=== PATIENT | male | born 1955 | race Caucasian/White ===

== ENCOUNTER 2021-09-10 06:03 | Day surgery (SDC) | payer SELFPAY ==
[2021-09-10] VITALS (7 sets, daily range): BP systolic 115–157; BP diastolic 69–93
[~2021-09-10] VITALS: Ht 165.1 cm; Wt 58.9 kg
[2021-09-10] MEDS ORDERED: 0.9%NACL 1000ML 1,000 ML IV ONE (06:20)
[2021-09-10] MEDS ORDERED: PROPOFOL 1000 MG/100 ML 100 ML IV ONE (07:23)
[2021-09-10] MEDS ORDERED: EPINEPHRINE PF 1MG AMP ONE (07:23)
== END 2021-09-10 09:20 | disposition home or self-care (01) ==
LOC: ENDO 06:03 → DAH 06:03 → ENDO 09:20
PROVIDERS: ATTEND Internal Medicine Gastroenterology
DX: D49.0 Neoplasm of unspecified behavior of digestive system (principal); Z20.822 Contact with and (suspected) exposure to COVID-19; K63.5 Polyp of colon; K63.89 Other specified diseases of intestine; I10 Essential (primary) hypertension; I25.2 Old myocardial infarction; E78.5 Hyperlipidemia, unspecified; I25.10 Atherosclerotic heart disease of native coronary artery without angina pectoris; Z95.5 Presence of coronary angioplasty implant and graft; Z79.1 Long term (current) use of non-steroidal anti-inflammatories (NSAID); Z86.010 Personal history of colon polyps
CPT/HCPCS: 45381; 45385; 87635; A4215 ×2; A4216; A4221; A4222; A4223; A4606; A4620; A4657; A4663; C9803; J0171; J2704; J7030

== ENCOUNTER 2025-04-11 05:58 | Day surgery (SDC) | payer OTHER ==
[2025-04-11] VITALS (12 sets, daily range): BP systolic 103–141; BP diastolic 63–87; PULSE 61–81; RESP 14–18; TEMP 97.1–97.6
[~2025-04-11] VITALS: Ht 172.7 cm; Wt 92.1 kg
[2025-04-11] MEDS: 0.9%NACL 1000ML 1,000 ML IV ONE (06:40)
[2025-04-11] MEDS ORDERED: AMLO-257 PO (06:42)
[2025-04-11] MEDS ORDERED: ROSUVASTATIN PO (06:42)
[2025-04-11] MEDS ORDERED: ASPI-1005 PO (06:42)
== END 2025-04-11 09:57 | disposition home or self-care (01) ==
LOC: ENDO 05:58 → DAH 05:58 → ENDO 09:57
PROVIDERS: ATTEND Internal Medicine Gastroenterology
DX: R19.5 Other fecal abnormalities (principal); D12.4 Benign neoplasm of descending colon; D12.5 Benign neoplasm of sigmoid colon; K62.1 Rectal polyp; I25.2 Old myocardial infarction; E78.5 Hyperlipidemia, unspecified; I10 Essential (primary) hypertension; I25.10 Atherosclerotic heart disease of native coronary artery without angina pectoris; E66.9 Obesity, unspecified; Z95.5 Presence of coronary angioplasty implant and graft; Z79.82 Long term (current) use of aspirin; Z79.899 Other long term (current) drug therapy; Z86.0100 Personal history of colon polyps, unspecified; Z68.30 Body mass index [BMI] 30.0-30.9, adult
CPT/HCPCS: 45380; 45385; 82948 ×2; J7030; J2704 ×2; A4620; A4649; A4215; J3490

== ENCOUNTER 2025-09-08 14:00 | Inpatient (IN) | payer OTHER ==
[~2025-09-08] VITALS: Ht 177.8 cm; Wt 90.9 kg
[2025-09-08 14:38] LABS: IMMATURE GRANULOCYTE ABSOLUTE 0.03 K/uL (0-1); PLATELET COUNT (AUTO) 223 K/uL (130-400); RED BLOOD CELL COUNT(AUTO) 5.97 MIL/uL (4.50-6.20); RED CELL DISTRIBUTION WIDTH 12.5 % (11.0-15.5); WHITE BLOOD COUNT (AUTO) 8.3 K/uL (4.8-10.8)
[2025-09-08 14:39] LABS: NUCLEATED RED BLOOD CELLS 0.0 % (0.0-0.19)
[2025-09-08 14:59] LABS: INR 0.99 (0.85-1.15)
[2025-09-08 15:03] LABS: ASPARTATE AMINOTRANSFERASE 27.0 U/L (10-37); CREATININE 0.9 mg/dL (0.5-1.3); GLOMERULAR FILTR. RATE CALC 93.0 mL/min (>90); GLUCOSE,RANDOM 124.0 mg/dL (70-105); SODIUM SERUM 137.0 mmol/L (136-145); TOTAL PROTEIN, SERUM 7.9 g/dL (6.0-8.3); UREA NITROGEN, BLOOD 21.0 mg/dL (7-18)
[2025-09-08 15:17] VITALS: BP 148/77; PULSE 60; RESP 18; TEMP 98.1
--- NOTE | 2025-09-09 04:55 | EKG ---
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
--- NOTE | 2025-09-11 09:50 | NUR ---
RE:EKG REPORTED EKG RESULTS TO DR PUGH, NO NEW ORDERS.
[2025-09-12] VITALS (25 sets, daily range): BP systolic 123–155; BP diastolic 58–101; PULSE 74–106; RESP 16–20; TEMP 97.4–98.4; O2SAT 96–98
[2025-09-12] MEDS ORDERED: INVANZ 1GM+NS 50ML IVPB 50 ML IV SCH (07:00)
[2025-09-12] MEDS: INDOCYANINE GREEN 25 MG VIAL IJ ONE ×2 (07:45→13:03)
[2025-09-12] MEDS: 0.9%NACL 1000ML 1,000 ML IV ONE (07:46)
[2025-09-12] MEDS ORDERED: LIDOCAINE HCL/EPINEPHRINE 30 ML VIAL IJ ONE (08:00)
[2025-09-12] MEDS ORDERED: LIDOCAINE PF 100MG/5ML (2%) SYRINGE 5ML ONE (08:03)
[2025-09-12] MEDS ORDERED: MIDAZOLAM HCL 1 MG/ML 2ML VIAL ONE (08:04)
[2025-09-12] MEDS: SUGAMMADEX SODIUM 200 MG/2 ML VIAL IV ONE (08:35)
[2025-09-12] MEDS: LIDOCAINE HCL/EPINEPHRINE 30 ML VIAL IJ ONE (08:37)
[2025-09-12] MEDS: ERTAPENEM SODIUM 1 GM/VIAL IV ONE (08:45)
[2025-09-12] MEDS ORDERED: PROMETHAZINE HCL 25 MG/ML 1ML AMPULE IM PRN (10:00)
[2025-09-12] MEDS ORDERED: ALBUMIN (HUMAN) 5% 250 ML IV ONE (12:01)
[2025-09-12] MEDS: LACTATED RINGERS 1000ML 1,000 ML IV SCH (15:30)
--- NOTE | 2025-09-12 15:34 | OP ---
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 Gibbs is a very pleasant 70-year-old male who was found to have an unresectable colon polyp which is also recurrent. He was offered surg ical management wished to proceed. Complications, alternatives, risks and benefits of the procedure were discussed and include but not limited to infection, bleeding, injury to surrounding structures such as blood vessels organs, anastomotic leak, sepsis, need for permanent stoma, poor bowel function, recurrent disease as well as need for additional procedures. The patient and wi fe voiced complete understanding and wished to proceed with surgery. All other questions were answered to their satisfaction. DESCRIPTION OF PROCEDURE: After informed consent was obtained, the patient was taken to the operating room laid in the supine position. Once general endotracheal anesthesia was obtained, the patient was carefully placed into the lithotomy position. Next the abdomen was prepped and draped in usual sterile fashion. A time-out was performed to confirm the correct patient procedure. Next varus needle was inserted and confirmed to be intra-abdominal with the saline drop test. Pneumoperitoneum was obtained. With the main 8 mm incision followed by placement of the trocar. The camera was inserted in the abdomen was inspected. There was noted to be a well- defined tattoo seen in the mid to distal transverse colon. We then placed additional trocars in a horizontal fashion across the lower abdomen. We made a Pfannenstiel incision followed by placement of a wound protector. Patient had a significant amount of intra-abdominal fat including very thickened and fatty mesentery as well as large fatty omentum making the dissection and mobilization extremely difficult. Given the above it was decided performed and extended right colectomy has a mesentery was do fat intake and to bring the descending and transverse colon together without tension. We took the omentum off of the transverse colon from the splenic flexure to be hepatic flexure. We then mobilized the descending colon in a lateral to medial manner. We then carefully took down the splenic flexure and released the attachments from the spleen as well as inferior border of the pancreas. Once this was completely mobilized we then took the mesentery up to healthy portion of the distal transverse colon. It was then transected with a blue load stapler. With the continued mobilization of the proximal transverse colon around the hepatic flexure which was taken down. We then mobilized the right colon in a lateral to medial manner. We then tented up the ileocolic pedicle and located the duodenum which was protected throughout the entirety of the case. We then transected the ileocolic pedicle with a white load stapler. We then took the mesentery up to a healthy portion of terminal ileum. The terminal ileum was transected with a blue load stapler. We then took the remaining mesentery of the right colon and proximal transverse colon with a vessel sealer. With specimen was then extracted through the wound protector Pfannenstiel incision. Once this was done we then ensured hemostasis throughout the abdomen. With the splenic flexure imbalance and descending colon mobilized we will performed a [id number] staple anastomosis involving the terminal ileum in left colon. Systemic ICG was given intravenously to confirm adequate blood flow to be 50 terminal ileum and colon which was confirmed on firefly. We then made a venotomy and colotomy followed by placement of a stapler. A stapled anastomosis was performed and the common enterotomy was closed with a running V lock suture in two layers. We then placed Clarix bio-tissue over the common enterocolotomy to aid in healing of the anastomosis. Once this was done and omental flap was created and placed around the anastomosis. Again hemostasis was confirmed. We then placed hemostatic powder throughout the abdomen and left a drain in place. We then removed all the trocars in the 12 mm port site was closed with a Vicryl stitch. Within securely drain in place and closed the Pfannenstiel fascia with PDS sutures. We then copiously irrigated the wound with saline and Betadine solution. All skin incisions were closed with Monocryl sutures and Dermabond was placed sterile dressing. The patient tolerated the procedure well and taken to the recovery room in stable condition. I discussed the above in great detail with both the and son a completion case. They voiced complete understanding and appreciation. Specimen: Right colon and transverse colon, tattoo [place] site of unresectable polyp Complications none All counts were reported as correct x2 by nursing staff DEB HOLMAN MD Sep 12, 2025 15:34
[2025-09-12] MEDS: MIDAZOLAM HCL 1 MG/ML 2ML VIAL ONE (15:44)
[2025-09-12] MEDS: ZOSYN 3.375GM +NS 50ML IVPB SCH (16:54)
--- NOTE | 2025-09-12 17:09 | NUR ---
PATIENT ARRIVED TO UNIT Patient arrived to unit. Follows commands, doses in and out of sleep. Assessment as charted. Patient oriented to room, unit, and facility. Addendum: 09/12/25 at 1711 by RAJAT CHACON RN RN Amended: Links added.
[2025-09-12] MEDS ORDERED: GLUCAGON 1MG KIT 1 MG ML IM PRN (19:00)
[2025-09-12] MEDS ORDERED: DEXTROSE 50%-WATER 50 ML DISP.SYRIN IV PRN (19:00)
--- NOTE | 2025-09-12 20:28 | CONS ---
[facility] CONSULTATION NOTE Date of Service: Sep 12, 2025 Reason for Consultation: [ Medical Management] Requesting Physician: [Dr. Goyal ] HISTORY OF PRESENT ILLNESS: Date of service: 09/12/2025, [place] [facility] [place] This is a 70-year-old male with underlying history of hypertension, previous history of DE in 2000, GI bleed, hyperlipidemia with previous history of 3 cm tubulovillous polyp involving the proximal descending colon noted on colonoscopy from 07/2025 who is status post robotic extended right colectomy today by Dr. Goyal. Patient was seen postoperatively procedure, patient denies any significant complaint. States that abdominal pain is controlled. Patient states that he is still recovering from anesthesia. Denies any significant nausea or vomiting. Patient denies any active chest pain. Reports that he last took aspirin about five days prior to procedure. Denies any focal weakness or upper or lower extremities. Family at bedside does report that patient has a history of snoring but denies use of CPAP therapy at. Patient will be monitored closely postprocedure. We will see how patient progresses in the next 24-48 hours, we will follow this patient closely tonight. REVIEW OF SYSTEMS CONSTITUTIONAL: Denies fevers, chills, or night sweats. No unintentional weight loss reported. NEUROLOGICAL: Denies headache, amaurosis fugax, motor weakness, sensory deficit, vertigo/spinning sensation, gait abnormalities, or tremors. ENT: No hearing loss, otalgia, otorrhea, rhinitis, rhinorrhea, hoarseness, or sore throat. CARDIOVASCULAR: Denies any exertional angina, dyspnea on exertion, orthopnea, paroxysmal nocturnal dyspnea, palpitations, life-threatening arrhythmias, claudication. PULMONARY: Denies any shortness of breath, cough, phlegm/sputum, hemoptysis, pleuritic chest pain. SLEEP: Denies morning headaches, daytime somnolence or napping. Denies difficulty falling asleep, staying asleep, waking from sleep. Denies knowledge of snoring. GASTROINTESTINAL: reports having abdominal pain post surgery as expected GENITOURINARY: Denies frequency, urgency, nocturia, hematuria or incontinence (Storage/Irritative symptoms.) Low urinary stream, straining to void, urinary intermittency or hesitancy, splitting of the voiding stream, terminal dribbling. ENDOCRINOLOGIC: Denies polyuria, polydipsia, polyphagia or heat/cold intolerances. HEMATOLOGIC: Denies thrombophilia/previous clots, or coagulopathy/bleeding disorders. ONCOLOGIC: Denies personal history of malignancy. DERMATOLOGIC: Denies rashes or pruritus. PSYCHIATRIC: Denies any suicidal or homicidal ideation. Denies hallucinations. PAST MEDICAL HISTORY: Hypertension, hyperlipidemia, previous history of DE in 2000, history of GI bleeding, history of previous multiple colon polyps, obesity, possible undiagnosed obstructive sleep apnea PAST SURGICAL HISTORY: Reports having previous history of PCI with cardiac stent placement with most recent being in 2013 PAST SOCIAL HISTORY: Patient has a previous history of smoking, quit smoking about 20 years ago, quit alcohol consumption about 20 years ago as well, denies any illicit drug use FAMILY HISTORY: Denies history of GI malignancy Allergies: No known drug allergies Home medications: Amlodipine 5 mg at bedtime, aspirin 81 mg at bedtime, Crestor 10 mg at bedtime, Jardiance 10 mg at bedtime Coded Allergies: No Known Drug Allergies (Verified Allergy, 11/07/13) PHYSICAL EXAM GENERAL APPEARANCE: The patient is sleepy, but responds to verbal stimuli, able to tell me his name and responds to questions appropriately NEUROLOGICAL: Cranial nerves II-XII grossly intact. Neurological examination is nonfocal HEENT: Face is symmetric. Pupils are equal and reactive. Extraocular movements are intact. NECK: Supple. No JVD. No thyromegaly. No submental, submandibular, pre- /postauricular, occipital or supraclavicular lymphadenopathy. CHEST: Normal chest expansion. No Telemetry. LUNGS: Absence of any rales, rhonchi or any wheezing. CARDIOVASCULAR: Regular. S1 and S2 normal. No appreciable rubs, murmurs or gallops. ABDOMEN: Soft, laparoscopic abdominal incision site, appears clean, dry with no significant bleeding. JILL drain noted with serosanguineous output : Deferred. No Yeung. EXTREMITIES: Non-edematous and not cyanotic. No clubbing. Good capillary refill. SKIN: No skin breakdown. Vital Sign (Last 24 Hours) 09/12/25 09/12/25 16:30 18:15 Temp 98.1 Pulse 97 Resp 16 B/P (MAP) 134/91 Pulse Ox 97 O2 Delivery Nasal Cannula O2 Flow Rate 3.0 FiO2 28 LABS: Laboratory: Test 09/12/25 07:17 Range/Units Whole Blood Glucose 151 H 70-110 MG/DL DIAGNOSTICS / RADIOLOGY: none ASSESSMENT: Status post robotic extended right colectomy by Dr. Goyal, 09/12/2025 History of unresectable tubulovillous midtransverse colon polyp measuring about 30 mm involving the mid transverse colon, POA History of DE with previous history of PCI, POA Hypertension, POA Hyperlipidemia, POA Prior history of GI bleeding, POA Obesity, POA Rule out obstructive sleep apnea, POA PLAN: Patient will continue with close monitoring in medical-surgical floor Continue with postoperative care per Colorectal surgery Continue with pain control with IV hydromorphone for severe pain and oxycodone for moderate pain per Colorectal services Patient to continue with gentle IV fluids with LR at 50 mL/hour Continue with Zofran PRN for management of postoperative nausea We will resume patient's antihypertensives with amlodipine 5 mg daily Continue with home dose of Crestor, we will restart aspirin tomorrow morning if okay with Colorectal surgery We will keep patient on GI prophylaxis with Pepcid We will see how patient progresses closely tonight in the next 24 hours Patient to continue with IS q.4 hours postoperatively We will hold patient's home dose of Jardiance to reduce risk of ketosis especially in the postop setting All labs will be repeated in the morning Continue with DVT prophylaxis with Lovenox tomorrow, placed on IV Zosyn for 48 hours postoperatively Patient will benefit from sleep study as outpatient to r/o CYNTHIA Date of service: 09/12/2025 Plan of care was discussed with patient at bedside, Joao Singh MD Advanced Care Planning: Which of the following were discussed: Hospice care: Yes __ No _x_ Therapeutic options: Yes _x_ No __ Advance directives: Yes _x_ No __ Other discussions: Discussed with who?: Patient Voluntary nature of this service was explained to the patient? Yes _x_ No __ Amount of time spent: 20 minutes JOAO SINGH MD Sep 12, 2025 20:28
[2025-09-12] MEDS: FAMOTIDINE 20MG TAB PO SCH (21:00)
[2025-09-12] MEDS: amLODIPine 5 MG TAB PO SCH (21:00)
[2025-09-13] VITALS (8 sets, daily range): BP systolic 115–154; BP diastolic 71–85; PULSE 75–91; RESP 16–19; TEMP 98.1–98.5; O2SAT 95–96
[2025-09-13 03:30] LABS: IMMATURE GRANULOCYTE ABSOLUTE 0.04 K/uL (0-1); NUCLEATED RED BLOOD CELLS 0.0 % (0.0-0.19); PLATELET COUNT (AUTO) 221 K/uL (130-400); RED BLOOD CELL COUNT(AUTO) 5.58 MIL/uL (4.50-6.20); RED CELL DISTRIBUTION WIDTH 12.3 % (11.0-15.5); WHITE BLOOD COUNT (AUTO) 12.7 K/uL (4.8-10.8)
[2025-09-13 03:38] LABS: CREATININE 1.2 mg/dL (0.5-1.3); GLOMERULAR FILTR. RATE CALC 66.0 mL/min (>90); GLUCOSE,RANDOM 193.0 mg/dL (70-105); SODIUM SERUM 137.0 mmol/L (136-145); UREA NITROGEN, BLOOD 16.0 mg/dL (7-18)
[2025-09-13] MEDS ORDERED: 0.9%NACL 50ML IV SCH (08:00)
[2025-09-13] MEDS: ASPIRIN 81MG CHEW TAB PO SCH (08:21)
[2025-09-13] MEDS: ENOXAPARIN SODIUM 40 MG/0.4 ML SYRINGE SQ SCH (08:22)
--- NOTE | 2025-09-13 10:01 | NUR ---
DCP:HOME Pt currently lives at home with his . Pt denies any DME, home health, or provider services. Pt states that he is able to complete ADLs independently. PCP is Dr. Jefferson and uses [facility] for any RX needs. At DC pt will want to go home and family can assist with transportation.
--- NOTE | 2025-09-13 12:00 | NUR ---
SLIDING SCALE INSULIN PATIENT REFUSED INSULIN AFTER BLOOD SUGAR CHECK OF 198 PATIENT STATED HE DID NOT WANT HIS SUGAR TO DROP TOO LOW
--- NOTE | 2025-09-13 13:14 | PN ---
[facility] PROGRESS NOTE Date of Service: Sep 13, 2025 Time of Service: 13:11 SUBJECTIVE: 09/13 PATIENT REMAINS ADMITTED TO MEDICAL FLOOR, COMFORTABLY IN BED, NO ACUTE EVENTS OVERNIGHT PER DISCUSSION WITH THE RN, BLOOD PRESSURE 146/81, AFEBRILE, SATURATING NORMAL ON ROOM AIR. THE PATIENT IS ALERT ORIENTED X3, TOLERATING DIET, BUT NO BOWEL MOVEMENT TODAY. CBC SHOWS A HEMOGLOBIN OF 60.3, HEMATOCRIT 50.2, WBC 12.7, PLATELET COUNT OF 221. SODIUM 137, POTASSIUM 4.3, BUN OF 60, CREATININE 1.2, MAGNESIUM 2.1. WE WILL FOLLOW REPEAT CBC, TRANSFUSE 1 UNIT OF PRBC IF HEMOGLOBIN LESS THAN SEVEN OR EQUAL TO SEVEN. CREATININE SLIGHTLY ELEVATED TODAY AT 1.2 COMPARED TO YESTERDAY 0.9, FOLLOW REPEAT CMP. REPLACE ELECTROLYTES IV PER PROTOCOL. CONTINUE IV FLUIDS TO FOLLOW SURGICAL INPUT RECOMMENDATION, FOLLOW A.M. LABS. PLAN OF ACTION DISCUSSED WITH BOTH THE PATIENT AND THE AT BEDSIDE, ALL QUESTIONS ANSWERED, AGREED AND UNDERSTOOD THE INFORMATION PROVIDED. REVIEW OF SYSTEMS CONSTITUTIONAL: Denies fevers, chills, or night sweats. No unintentional weight loss reported. NEUROLOGICAL: Denies headache, amaurosis fugax, motor weakness, sensory deficit, vertigo/spinning sensation, gait abnormalities, or tremors. ENT: No hearing loss, otalgia, otorrhea, rhinitis, rhinorrhea, hoarseness, or sore throat. CARDIOVASCULAR: Denies any exertional angina, dyspnea on exertion, orthopnea, paroxysmal nocturnal dyspnea, palpitations, life-threatening arrhythmias, claudication. PULMONARY: Denies any shortness of breath, cough, phlegm/sputum, hemoptysis, pleuritic chest pain. SLEEP: Denies morning headaches, daytime somnolence or napping. Denies difficulty falling asleep, staying asleep, waking from sleep. Denies knowledge of snoring. GASTROINTESTINAL: reports having abdominal pain post surgery as expected GENITOURINARY: Denies frequency, urgency, nocturia, hematuria or incontinence (Storage/Irritative symptoms.) Low urinary stream, straining to void, urinary intermittency or hesitancy, splitting of the voiding stream, terminal dribbling. ENDOCRINOLOGIC: Denies polyuria, polydipsia, polyphagia or heat/cold intolerances. HEMATOLOGIC: Denies thrombophilia/previous clots, or coagulopathy/bleeding disorders. ONCOLOGIC: Denies personal history of malignancy. DERMATOLOGIC: Denies rashes or pruritus. PSYCHIATRIC: Denies any suicidal or homicidal ideation. Denies hallucinations. PHYSICAL EXAM GENERAL APPEARANCE: The patient is sleepy, but responds to verbal stimuli, able to tell me his name and responds to questions appropriately NEUROLOGICAL: Cranial nerves II-XII grossly intact. Neurological examination is nonfocal HEENT: Face is symmetric. Pupils are equal and reactive. Extraocular movements are intact. NECK: Supple. No JVD. No thyromegaly. No submental, submandibular, pre- /postauricular, occipital or supraclavicular lymphadenopathy. CHEST: Normal chest expansion. No Telemetry. LUNGS: Absence of any rales, rhonchi or any wheezing. CARDIOVASCULAR: Regular. S1 and S2 normal. No appreciable rubs, murmurs or gallops. ABDOMEN: Soft, laparoscopic abdominal incision site, appears clean, dry with no significant bleeding. JILL drain noted with serosanguineous output : Deferred. No Yeung. EXTREMITIES: Non-edematous and not cyanotic. No clubbing. Good capillary refill. SKIN: No skin breakdown. Vital Signs (last 8hr) Date Time Temp Pulse Resp B/P (MAP) Pulse Ox O2 Delivery O2 Flow Rate FiO2 09/13/25 12:23 95 Room Air* 0 21 09/13/25 11:59 98.4 77 16 146/81 95 Room Air 09/13/25 07:56 98.2 85 16 136/82 96 Nasal Cannula 2.0 LABS: Laboratory: Test 09/13/25 11:43 09/13/25 03:12 Range/Units Whole Blood Glucose 198 H 70-110 MG/DL White Blood Count 12.7 H 4.8-10.8 K/uL Red Blood Count 5.58 4.50-6.20 MIL/uL Hemoglobin 16.3 14.0-18.0 g/dL Hematocrit 50.2 42-54 % Mean Corpuscular Volume 90.0 79-99 fL Mean Corpuscular Hemoglobin 29.2 27.0-33.0 pg Mean Corpuscular Hemoglobin Concent 32.5 32.0-36.0 g/dL Red Cell Distribution Width 12.3 11.0-15.5 % Platelet Count 221 130-400 K/uL Mean Platelet Volume 10.0 7.5-10.5 fL Immature Granulocyte % (Auto) 0.3 0-1 % Neutrophils (%) (Auto) 86.9 H 40.0-77.0 % Lymphocytes (%) (Auto) 3.2 L 21.0-51.0 % Monocytes (%) (Auto) 9.4 3.0-13.0 % Eosinophils (%) (Auto) 0.0 0.0-8.0 % Basophils (%) (Auto) 0.2 0.0-5.0 % Neutrophils # (Auto) 11.0 H 1.8-7.7 K/uL Lymphocytes # (Auto) 0.4 L 1.0-4.8 K/uL Monocytes # (Auto) 1.2 H 0.1-1.0 K/uL Eosinophils # (Auto) 0.00 0.00-0.70 K/uL Basophils # (Auto) 0.02 0.00-0.20 K/uL Absolute Immature Granulocyte (auto 0.04 0-1 K/uL Nucleated Red Blood Cells 0.0 0.0-0.19 % White Cell Morphology Comment See comments Sodium Level 137 136-145 mmol/L Potassium Level 4.3 3.5-5.1 mmol/L Chloride Level 104 101-111 mmol/L Carbon Dioxide Level 24 21-32 mmol/L Blood Urea Nitrogen 16 7-18 mg/dL Creatinine 1.2 0.5-1.3 mg/dL Glomerular Filtration Rate Calc 66 >90 mL/min Random Glucose 193 H 70-105 mg/dL Total Calcium 8.5 8.5-10.1 mg/dL Magnesium Level 2.10 1.80-2.40 mg/dL Current Medications Medications (Trade) Dose Ordered Sig/Martin Route PRN Reason Start Time Stop Time Status Last Admin Dose Admin Acetaminophen (TYLenol 325MG TAB) 650 mg Q6H PO 09/12/25 15:30 10/12/25 15:29 09/13/25 10:50 650 MG Amlodipine Besylate (NorvASC 5MG TAB) 5 mg HS PO 09/12/25 21:00 10/12/25 20:59 09/12/25 21:00 5 MG Aspirin (Aspirin 81mg Chew Tab) 81 mg DAILY PO 09/13/25 09:00 10/13/25 08:59 09/13/25 08:21 81 MG Atorvastatin Calcium (LIPItor 40MG) 40 mg HS PO 09/12/25 21:00 10/12/25 20:59 09/12/25 21:00 40 MG Dextrose (D50w) 50 ml AD PRN IV HYPOGLYCEMIA PROTOCOL 09/12/25 19:00 10/12/25 18:59 Enoxaparin Sodium (Lovenox) 40 mg DAILY SQ 09/13/25 09:00 10/13/25 08:59 09/13/25 08:22 40 MG Ertapenem 50 ml @ 100 mls/hr ONCALL IV 09/12/25 07:00 09/12/25 15:43 DC Famotidine (Pepcid 20mg Tab) 20 mg BID PO 09/12/25 21:00 10/12/25 20:59 09/13/25 08:21 20 MG Fentanyl Citrate (FENTanyl CITRate PF 50 MCG/ 1 ML 2ML VIAL) 25 mcg Q5MIN PRN IVP PAIN LEVEL 7 TO 10 09/12/25 10:00 09/12/25 16:59 DC 09/12/25 15:49 25 MCG Gabapentin (NEURontin 100 mg CAP) 100 mg TID PO 09/12/25 21:00 10/12/25 20:59 09/13/25 08:21 100 MG Glucagon (Glucagon 1mg Kit) 1 mg AD PRN IM HYPOGLYCEMIA PROTOCOL 09/12/25 19:00 10/12/25 18:59 Hydralazine HCl (APRESOLine 20MG INJ) 5 mg Q6H PRN IV ADMINISTER FOR SBP > 160 09/12/25 19:00 10/12/25 18:59 Hydromorphone HCl (DiLAUDid 0.5MG INJ) 0.5 mg Q4H PRN IVP SEVERE PAIN (7-10) 09/12/25 15:30 09/17/25 15:29 09/13/25 00:20 0.5 MG Insulin Human Regular (humuLIN R 100 UNIT/ML 3ML) AD PRN SQ SLIDING SCALE COVERAGE 09/12/25 15:30 09/12/25 18:53 DC Insulin Human Regular (humuLIN R 100 UNIT/ML 3ML) INSULIN SLIDING SCAL... ACHS SQ 09/12/25 21:00 10/12/25 20:59 Ketorolac Tromethamine (toRADol) 30 mg AD PRN IV PAIN LEVEL 1 TO 3 09/12/25 10:00 09/12/25 16:59 DC Lactated Ringer's 1,000 ml @ 50 mls/hr Q20H IV 09/12/25 15:30 10/12/25 15:29 09/13/25 12:59 50 MLS/HR Metoclopramide HCl (regLAN 10MG IV) 10 mg AD PRN IVP NAUSEA/VOMITING 09/12/25 10:00 09/12/25 16:59 DC Morphine Sulfate (morPHINE 2MG SYG) 2 mg AD PRN IVP PAIN LEVEL 4 TO 6 09/12/25 10:00 09/12/25 16:59 DC Naloxone HCl (NARcan 0.4mg/1 mL) 0.1 mg AD PRN IVP RESPIRATORY SYMPTOMS 09/12/25 10:00 09/12/25 16:59 DC Ondansetron HCl (zoFRAN 4MG INJ) 4 mg AD PRN IVP NAUSEA/VOMITING 09/12/25 10:00 09/12/25 16:59 DC Ondansetron HCl (zoFRAN 4MG INJ) 4 mg Q4H PRN IVP NAUSEA 09/12/25 15:30 10/12/25 15:29 Oxycodone HCl (ROXicoDONE) 5 mg Q4H PRN PO MODERATE PAIN (4-6) 09/12/25 15:30 09/19/25 15:29 09/13/25 08:20 5 MG Piperacillin Sod/ Tazobactam Sod (Zosyn 3.375gm+NS 50ml) 3.375 gm Q8H IVPB 09/12/25 16:00 09/14/25 15:59 09/13/25 08:21 3.375 GM Promethazine HCl (Phenergan) 25 mg AD PRN IM NAUSEA/VOMITING 09/12/25 10:00 09/12/25 16:59 DC Sodium Chloride (NS 50ml) 50 ml AD IV 09/13/25 08:00 09/12/25 15:42 DC DIAGNOSTICS / RADIOLOGY: [ ] ASSESSMENT: Status post robotic extended right colectomy by Dr. Goyal, 09/12/2025 History of unresectable tubulovillous midtransverse colon polyp measuring about 30 mm involving the mid transverse colon, POA History of AK with previous history of PCI, POA Hypertension, POA Hyperlipidemia, POA Prior history of GI bleeding, POA Obesity, POA Rule out obstructive sleep apnea, POA PLAN: PATIENT REMAINS ADMITTED TO MEDICAL FLOOR, COMFORTABLY IN BED, NO ACUTE EVENTS OVERNIGHT PER DISCUSSION WITH THE RN, BLOOD PRESSURE 146/81, AFEBRILE, SATURATING NORMAL ON ROOM AIR. THE PATIENT IS ALERT ORIENTED X3, TOLERATING DIET, BUT NO BOWEL MOVEMENT TODAY. CBC SHOWS A HEMOGLOBIN OF 60.3, HEMATOCRIT 50.2, WBC 12.7, PLATELET COUNT OF 221. SODIUM 137, POTASSIUM 4.3, BUN OF 60, CREATININE 1.2, MAGNESIUM 2.1. WE WILL FOLLOW REPEAT CBC, TRANSFUSE 1 UNIT OF PRBC IF HEMOGLOBIN LESS THAN SEVEN OR EQUAL TO SEVEN. CREATININE SLIGHTLY ELEVATED TODAY AT 1.2 COMPARED TO YESTERDAY 0.9, FOLLOW REPEAT CMP. REPLACE ELECTROLYTES IV PER PROTOCOL. CONTINUE IV FLUIDS TO FOLLOW SURGICAL INPUT RECOMMENDATION, FOLLOW A.M. LABS. PLAN OF ACTION DISCUSSED WITH BOTH THE PATIENT AND THE AT BEDSIDE, ALL QUESTIONS ANSWERED, AGREED AND UNDERSTOOD THE INFORMATION PROVIDED. NEURO: MINIMIZE CENTRAL ACTING MEDICATIONS POSSIBLE. FALL PRECAUTIONS. WELL LIGHTED ROOM THROUGH THE DAY AND MINIMIZE INTERRUPTIONS THROUGH THE NIGHT TO PREVENT ACUTE DELIRIUM. PULMONARY: SUPPLEMENTAL 02 NEEDED BIPAP NECESSARY, FOR RESPIRATORY DISTRESS TITRATE FIO2 TO KEEP SPO2 > OR = 90% DUONEBS AND CPT NEEDED IS HOURLY WHILE AWAKE FOR PULMONARY HYGIENE PRN OUT OF BED TO CHAIR TOLERATED MAINTAIN ASPIRATION PRECAUTIONS AT ALL TIMES CARDIOVASCULAR: FOLLOW HEMODYNAMICS. VITAL SIGNS PER FACILITY PROTOCOL GI & NUTRITION: CONTINUE NUTRITIONAL SUPPORT ASPIRATIONS PRECAUTIONS PROKINETIC AGENTS AND LAXATIVES NEEDED KIDNEYS & ELECTROLYTES: STRICT MONITORING OF INTAKE AND OUTPUT DAILY WEIGHTS AVOID NEPHROTOXIC AGENTS MONITOR ELECTROLYTES AND REPLACE NEEDED GOAL URINE OUTPUT OF 30ML/HR OR 0.5ML/KG/HR MEDICATIONS TO BE DOSED ACCORDING TO RENAL FUNCTION. AVOID CONTRAST IF POSSIBLE ENDOCRINE: MAINTAIN BLOOD GLUCOSE BETWEEN 100-180 AT ALL TIMES. INSULIN SLIDING SCALE FOR BLOOD GLUCOSE MANAGEMENT HYPOGLYCEMIA AND HYPERGLYCEMIA PROTOCOL IN PLACE INFECTIOUS DISEASE: TREND TEMPERATURE, WBC AND PROCALCITONIN LEVEL FOLLOW CULTURES, DEESCALATE ANTIBIOTICS SOON POSSIBLE. PANCULTURE IF NEW ONSET FEVER HEMATOLOGY & COAGULATION: MONITOR H&H. KEEP HGB > 7 TRANSFUSE 1 UNIT OF PRBC FOR HGB < 7 TRANSFUSE 1 PACK OF PLATELETS OF PLATELETS < 20, 000 WATCH FOR ANY SIGNS AND SYMPTOMS OF BLEEDING SKIN: PRESSURE ULCER PREVENTION PER FACILITY PROTOCOL SPECIALTY MATTRESS NEEDED ORTHO/REHAB CONTINUE PT/OT PRN: MEDICATIONS TYLENOL 650 MG PO EVERY 4 HRS FOR FEVER ZOFRAN 4 MG IV EVERY 6 HRS FOR N/V HYDRALAZINE 5 MG IV EVERY 4 HRS SYSTOLIC PRESSURE > 160 BOWEL REGIMENT: LACTULOSE 20 GM PO BID PRN CONSTIPATION SUPPORTIVE MEASURES: CONTINUE GI AND DVT PROPHYLAXIS DISPOSITION: PENDING IMPROVEMENT IN CLINICAL CONDITION ALL QUESTIONS ANSWERED TIME SPENT: > 35 MIN GILBERT KIM MD Sep 13, 2025 13:14
--- NOTE | 2025-09-13 14:22 | NUR ---
KARINA CATH REMOVAL S/W WITH EDIL VILLALOBOS WITH [facility]. OK TO D/C KARINA.
[2025-09-13 14:47] LABS: NUCLEATED RED BLOOD CELLS 0.0 % (0.0-0.19); PLATELET COUNT (AUTO) 218.0 K/uL (130-400); RED BLOOD CELL COUNT(AUTO) 5.54 MIL/uL (4.50-6.20); RED CELL DISTRIBUTION WIDTH 12.3 % (11.0-15.5); WHITE BLOOD COUNT (AUTO) 15.2 K/uL (4.8-10.8)
[2025-09-13 15:02] LABS: CREATININE 1.2 mg/dL (0.5-1.3); GLOMERULAR FILTR. RATE CALC 66.0 mL/min (>90); GLUCOSE,RANDOM 186.0 mg/dL (70-105); SODIUM SERUM 136.0 mmol/L (136-145); UREA NITROGEN, BLOOD 18.0 mg/dL (7-18)
[2025-09-13 15:06] LABS: ASPARTATE AMINOTRANSFERASE 25.0 U/L (10-37); TOTAL PROTEIN, SERUM 7.0 g/dL (6.0-8.3)
--- NOTE | 2025-09-13 15:32 | NUR ---
COLLINS REMOVAL 16 FR COLLINS CATHETER REMOVED PER ORDER. 125ML OF CLEAR YELLOW URINE EMPTIED FROM COLLINS. BALLOON DEFLATED WITH 9 ML OF H20 NOTED IN SYRINGE. REMOVED CATHETER USING CLEAN TECHNIQUE. CATHETER TIP CLEAN AND INTACT. PATIENT TOLERATED WELL NO SIGNS OF PAIN OR DISCOMFORT NOTED. PATIENT ADVISED TO NOTIFY NURSE OF FIRST VOID POST REMOVAL.
--- NOTE | 2025-09-13 16:41 | NUR ---
PT Endorsed Patient ambulates safely on his own. Will remove from PT roster and endorse to nursing
--- NOTE | 2025-09-13 16:44 | NUR ---
INSULIN REFUSAL PATIENT REFUSED SLIDING SCALE INSULIN LET PATIENT KNOW HIS SUGAR CHECK CAME BACK AT 179 PATIENT STILL REFUSED AND SAID HE DID NOT WANT HIS SUGAR TO DROP LOWER
--- NOTE | 2025-09-13 18:30 | NUR ---
[facility] CHANGED DRESSING AROUND JILL DRAIN INSERTION CLEANED WITH SALINE AROUND SITE AND APPLIED CLEAN AND DRY 4X4 DRESSINGS AROUND DRAIN AND PUT TAGADERM AROUND TO SECURE LEFT CLEAN AND DRY
[2025-09-13] MEDS: SIMETHICONE 80 MG TAB.CHEW PO SCH (18:37)
--- NOTE | 2025-09-13 18:58 | NUR ---
PATIENT STATUS PATIENT WAS FEELING NAUSEOUS AND SAT UP IN BED PATIENT VOMITED INTO EMESIS BAG ONLY 1 EPISODE POST MED ADMINISTRATION OF SIMETHICONE TABLETS Addendum: 09/13/25 at 1906 by BRII SAMUEL LVN LVN PATIENT VITALS AFTER FOLLOWS: BP126/94, 100 HEART RATE, O2 91% SECOND SET: BP 139/98, 96 HEART RATE, O2 93 PATIENT FELT BETTER AFTER, LEFT PATIENT COMFORTABLE IN BED IN NO DISTRESS
--- NOTE | 2025-09-13 21:55 | PN ---
[facility] PROGRESS NOTE Date of Visit: Sep 13, 2025 Time of Visit: 21:54 Events / Notes: No acute events overnight. s/p right colectomy. Abdomen distended but soft. He had a BM. No nausea or vomiting and he is tolerating diet. Incisions clean, dry and intact. Review of Systems: CONSTITUTIONAL: No malaise or change in sensation of wellbeing. ENMT: No rhinorrhea, otorrhea, sinus pain, ear ache. CARDIOVASCULAR: No angina, palpitations, orthopnea or paroxysmal dyspnea. RESPIRATORY: No SOB. GASTROINTESTINAL: No abdominal pain, nausea, vomiting, diarrhea, hematemesis, melena or change in the patient's habitual bowel movements consistency/number. GENITOURINARY: No dysuria, hematuria or change in bladder continence. MUSCULOSKELETAL: No new muscle pain or decrease in muscular strength. No new joint swelling, redness or tenderness. SKIN: No new rash. Physical Exam: GEN: Awake, alert, oriented in person, time and place, and in no acute distress. HEENT: No sinus tenderness. Tympanic membranes were not examined. No rhinorrhea. Oral pharyngeal mucosa is pink, moist and within normal limits. Neck is supple with no cervical lymphadenopathy, thyromegaly or JVD. CHEST: Inspection, palpation and percussion of the chest were unremarkable. Lung auscultation revealed normal breath sounds bilaterally. CARDIAC: PMI is within normal limits. Heart sounds are regular. Normal S1, S2. No gallop or murmur. ABD: Soft, non-tender and not distended. No peritoneal signs on palpation. No organomegaly. Normal bowel sounds. EXT: No cyanosis or clubbing. No edema. SKIN: Intact. No rashes. JOINTS: No evidence of synovitis or acute arthritis. NEURO: Alert and oriented to name, place and person. Cranial nerve examination is unremarkable. No focal motor deficits. Normal speech. Gait is normal. Strength is normal. Vital Signs (last 8hr) Date Time Temp Pulse Resp B/P (MAP) Pulse Ox O2 Delivery O2 Flow Rate FiO2 09/13/25 20:16 98.4 83 19 154/85 96 Room Air 21 09/13/25 16:33 98.1 75 18 145/84 95 Room Air Laboratory: [ ] Laboratory: Test 09/13/25 19:21 09/13/25 14:35 09/13/25 03:12 Range/Units Whole Blood Glucose 166 H 70-110 MG/DL White Blood Count 15.2 H 4.8-10.8 K/uL Red Blood Count 5.54 4.50-6.20 MIL/uL Hemoglobin 16.1 14.0-18.0 g/dL Hematocrit 48.9 42-54 % Mean Corpuscular Volume 88.3 79-99 fL Mean Corpuscular Hemoglobin 29.1 27.0-33.0 pg Mean Corpuscular Hemoglobin Concent 32.9 32.0-36.0 g/dL Red Cell Distribution Width 12.3 11.0-15.5 % Platelet Count 218 130-400 K/uL Mean Platelet Volume 9.7 7.5-10.5 fL Nucleated Red Blood Cells 0.0 0.0-0.19 % Sodium Level 136 136-145 mmol/L Potassium Level 4.0 3.5-5.1 mmol/L Chloride Level 101 101-111 mmol/L Carbon Dioxide Level 24 21-32 mmol/L Blood Urea Nitrogen 18 7-18 mg/dL Creatinine 1.2 0.5-1.3 mg/dL Glomerular Filtration Rate Calc 66 >90 mL/min Random Glucose 186 H 70-105 mg/dL Total Calcium 8.7 8.5-10.1 mg/dL Magnesium Level 2.30 1.80-2.40 mg/dL Total Bilirubin 0.7 0.2-1.0 mg/dL Aspartate Amino Transf (AST/SGOT) 25 10-37 U/L Alanine Aminotransferase (ALT/SGPT) 43 12-78 U/L Alkaline Phosphatase 74 50-136 U/L Total Protein 7.0 6.0-8.3 g/dL Albumin 3.6 3.5-5.0 g/dL Immature Granulocyte % (Auto) 0.3 0-1 % Neutrophils (%) (Auto) 86.9 H 40.0-77.0 % Lymphocytes (%) (Auto) 3.2 L 21.0-51.0 % Monocytes (%) (Auto) 9.4 3.0-13.0 % Eosinophils (%) (Auto) 0.0 0.0-8.0 % Basophils (%) (Auto) 0.2 0.0-5.0 % Neutrophils # (Auto) 11.0 H 1.8-7.7 K/uL Lymphocytes # (Auto) 0.4 L 1.0-4.8 K/uL Monocytes # (Auto) 1.2 H 0.1-1.0 K/uL Eosinophils # (Auto) 0.00 0.00-0.70 K/uL Basophils # (Auto) 0.02 0.00-0.20 K/uL Absolute Immature Granulocyte (auto 0.04 0-1 K/uL White Cell Morphology Comment See comments Current Medications Medications (Trade) Dose Ordered Sig/Martin Route PRN Reason Start Time Stop Time Status Last Admin Dose Admin Acetaminophen (TYLenol 325MG TAB) 650 mg Q6H PO 09/12/25 15:30 10/12/25 15:29 09/13/25 20:56 650 MG Amlodipine Besylate (NorvASC 5MG TAB) 5 mg HS PO 09/12/25 21:00 10/12/25 20:59 09/13/25 20:47 5 MG Aspirin (Aspirin 81mg Chew Tab) 81 mg DAILY PO 09/13/25 09:00 10/13/25 08:59 09/13/25 08:21 81 MG Atorvastatin Calcium (LIPItor 40MG) 40 mg HS PO 09/12/25 21:00 10/12/25 20:59 09/13/25 20:47 40 MG Dextrose (D50w) 50 ml AD PRN IV HYPOGLYCEMIA PROTOCOL 09/12/25 19:00 10/12/25 18:59 Enoxaparin Sodium (Lovenox) 40 mg DAILY SQ 09/13/25 09:00 10/13/25 08:59 09/13/25 08:22 40 MG Ertapenem 50 ml @ 100 mls/hr ONCALL IV 09/12/25 07:00 09/12/25 15:43 DC Famotidine (Pepcid 20mg Tab) 20 mg BID PO 09/12/25 21:00 10/12/25 20:59 09/13/25 20:47 20 MG Fentanyl Citrate (FENTanyl CITRate PF 50 MCG/ 1 ML 2ML VIAL) 25 mcg Q5MIN PRN IVP PAIN LEVEL 7 TO 10 09/12/25 10:00 09/12/25 16:59 DC 09/12/25 15:49 25 MCG Gabapentin (NEURontin 100 mg CAP) 100 mg TID PO 09/12/25 21:00 10/12/25 20:59 09/13/25 20:47 100 MG Glucagon (Glucagon 1mg Kit) 1 mg AD PRN IM HYPOGLYCEMIA PROTOCOL 09/12/25 19:00 10/12/25 18:59 Hydralazine HCl (APRESOLine 20MG INJ) 5 mg Q6H PRN IV ADMINISTER FOR SBP > 160 09/12/25 19:00 10/12/25 18:59 Hydromorphone HCl (DiLAUDid 0.5MG INJ) 0.5 mg Q4H PRN IVP SEVERE PAIN (7-10) 09/12/25 15:30 09/17/25 15:29 09/13/25 00:20 0.5 MG Insulin Human Regular (humuLIN R 100 UNIT/ML 3ML) AD PRN SQ SLIDING SCALE COVERAGE 09/12/25 15:30 09/12/25 18:53 DC Insulin Human Regular (humuLIN R 100 UNIT/ML 3ML) INSULIN SLIDING SCAL... ACHS SQ 09/12/25 21:00 10/12/25 20:59 Ketorolac Tromethamine (toRADol) 30 mg AD PRN IV PAIN LEVEL 1 TO 3 09/12/25 10:00 09/12/25 16:59 DC Lactated Ringer's 1,000 ml @ 50 mls/hr Q20H IV 09/12/25 15:30 10/12/25 15:29 09/13/25 12:59 50 MLS/HR Metoclopramide HCl (regLAN 10MG IV) 10 mg AD PRN IVP NAUSEA/VOMITING 09/12/25 10:00 09/12/25 16:59 DC Morphine Sulfate (morPHINE 2MG SYG) 2 mg AD PRN IVP PAIN LEVEL 4 TO 6 09/12/25 10:00 09/12/25 16:59 DC Naloxone HCl (NARcan 0.4mg/1 mL) 0.1 mg AD PRN IVP RESPIRATORY SYMPTOMS 09/12/25 10:00 09/12/25 16:59 DC Ondansetron HCl (zoFRAN 4MG INJ) 4 mg AD PRN IVP NAUSEA/VOMITING 09/12/25 10:00 09/12/25 16:59 DC Ondansetron HCl (zoFRAN 4MG INJ) 4 mg Q4H PRN IVP NAUSEA 09/12/25 15:30 10/12/25 15:29 Oxycodone HCl (ROXicoDONE) 5 mg Q4H PRN PO MODERATE PAIN (4-6) 09/12/25 15:30 09/19/25 15:29 09/13/25 20:55 5 MG Piperacillin Sod/ Tazobactam Sod (Zosyn 3.375gm+NS 50ml) 3.375 gm Q8H IVPB 09/12/25 16:00 09/14/25 15:59 09/13/25 16:03 3.375 GM Promethazine HCl (Phenergan) 25 mg AD PRN IM NAUSEA/VOMITING 09/12/25 10:00 09/12/25 16:59 DC Simethicone (Mylicon) 160 mg Q6H6 PO 09/13/25 18:00 10/13/25 17:59 09/13/25 18:37 160 MG Sodium Chloride (NS 50ml) 50 ml AD IV 09/13/25 08:00 09/12/25 15:42 DC Diagnostics / Radiology: [COPY/PASTE HERE IF NO REPORTS PLEASE DELETE SECTION] Assessment: [ ] Plan: Regular diet Simethicone scheduled KUB in am Encourage ambulation If tolerating diet and pain controlled then cleared for discharge in AM EDUARDO DELONG [employer] Sep 13, 2025 21:55
[2025-09-14 03:58] LABS: IMMATURE GRANULOCYTE ABSOLUTE 0.06 K/uL (0-1); NUCLEATED RED BLOOD CELLS 0.0 % (0.0-0.19); PLATELET COUNT (AUTO) 246 K/uL (130-400); RED BLOOD CELL COUNT(AUTO) 5.38 MIL/uL (4.50-6.20); RED CELL DISTRIBUTION WIDTH 12.6 % (11.0-15.5); WHITE BLOOD COUNT (AUTO) 14.8 K/uL (4.8-10.8)
[2025-09-14 04:19] LABS: ASPARTATE AMINOTRANSFERASE 22.0 U/L (10-37); CREATININE 1.1 mg/dL (0.5-1.3); GLOMERULAR FILTR. RATE CALC 73.0 mL/min (>90); GLUCOSE,RANDOM 183.0 mg/dL (70-105); SODIUM SERUM 137.0 mmol/L (136-145); TOTAL PROTEIN, SERUM 6.7 g/dL (6.0-8.3); UREA NITROGEN, BLOOD 19.0 mg/dL (7-18)
[2025-09-14 04:25] VITALS: BP 119/68; PULSE 76; RESP 18; TEMP 98.2
[2025-09-14 07:58] VITALS: BP 134/69; PULSE 80; RESP 16; TEMP 98.3
--- NOTE | 2025-09-14 09:44 | HMCIMG ---
EXAM: CR Abdomen, 2 Views. CLINICAL HISTORY: Abdominal distention COMPARISON: None provided. FINDINGS: BOWEL: Abnormally dilated loops of small bowel are seen in the abdomen, measuring up to 3.5cm in caliber, with a few of them showing air-fluid levels, concerning for Small bowel obstruction. PERITONEUM/SOFT TISSUES:No free air evident. No pathologic appearing calcification. BONES: No aggressive appearing osseous lesion seen. IMPRESSION: Abnormally dilated loops of small bowel in the abdomen with air-fluid levels, concerning for Small bowel obstruction. Contrast CT Abdomen and pelvis is recommended for further evaluation if clinically warranted. /[place]
--- NOTE | 2025-09-14 10:04 | NUR ---
CRITICAL RESULT ABNORMAL ABDOMINAL U/S CONCERNING FOR SMALL BOWEL OBSTRUCTION. DR. KIM AWARE CT ABD/PELVIS W/O CONTRAST ORDERED. KEEP PATIENT NPO NOTIFY GI PHYSICIAN.
[2025-09-14 11:00] VITALS: O2SAT 92
--- NOTE | 2025-09-14 11:51 | HMCIMG ---
EXAM: CT Abdomen and Pelvis Without IV contrast CLINICAL HISTORY: SMALL BOWEL OBSTRUCTION TECHNIQUE: Axial computed tomography images of the abdomen and pelvis without intravenous contrast. CONTRAST: No IV contrast. COMPARISON: None provided. FINDINGS: LUNG BASES: A few fibrotic streaks with adjacent pleural thickening in the bilateral lung bases. Subsegmental atelectasis in the bilateral lower lobes. LIVER: Steatosis with a small cyst measuring 1.6 x 1.4 cm in segment VIII GALLBLADDER AND BILE DUCTS: The gallbladder appears within normal limits. No radioopaque gallstones are seen. No biliary ductal dilatation is evident. PANCREAS: Unremarkable. SPLEEN: Unremarkable. ADRENAL GLANDS: Unremarkable. KIDNEYS, URETERS, AND BLADDER: A few tiny cysts in the right kidney. The kidneys appear otherwise within normal limits. There is no hydronephrosis or hydroureter. No urinary calculi are seen. STOMACH AND BOWEL: Post extended right hemicolectomy status with surgical anastomosis of the ileal loops to the skin. Scattered diverticulosis of the distal descending and sigmoid colon. Postsurgical changes in the anterior abdominal wall with air locules in the anterior abdominal wall in the bilateral scrotum. Diffuse subcutaneous fat stranding and a drainage catheter are identified in the left paracolic gutter. No obvious collection is identified. Mild fluid-filled distended jejunal and ileal loops, measuring up to 3.6 cm, consistent with ileus. No inflammatory bowel wall thickening. PERITONEUM: No free fluid. No free air. LYMPH NODES: No lymphadenopathy is evident. REPRODUCTIVE: Enlarged prostate VASCULATURE: No evidence of abdominal aortic aneurysm. Atherosclerotic calcification in the abdominal aorta and iliac arteries BONES: No aggressive appearing osseous lesion. No acute osseous pathology evident. Moderate degenerative changes in the sacroiliac, superolateral hip joint, and multilevel degenerative facet at the lumbar spine. IMPRESSION: Post extended right hemicolectomy status with surgical anastomosis of the ileal loops to the skin. Scattered diverticulosis of the distal descending and sigmoid colon. Postsurgical changes in the anterior abdominal wall with air locules in the anterior abdominal wall in the bilateral scrotum. Diffuse subcutaneous fat stranding and a drainage catheter are identified in the left paracolic gutter. No obvious collection is identified. Mild fluid-filled distended jejunal and ileal loops, measuring up to 3.6 cm, consistent with ileus. Enlarged prostate. Diffuse fatty infiltration of the liver. A 1.6 cm hypodense lesion in segment 8 ofthe liver. Diffuse coronary artery calcifications. /[facility]clean
[2025-09-14 12:00] VITALS: BP 143/96; PULSE 107; RESP 18; TEMP 98.7
--- NOTE | 2025-09-14 12:19 | PN ---
[facility] PROGRESS NOTE Date of Service: Sep 14, 2025 Time of Service: 12:16 SUBJECTIVE: 09/13 PATIENT REMAINS ADMITTED TO MEDICAL FLOOR, COMFORTABLY IN BED, NO ACUTE EVENTS OVERNIGHT PER DISCUSSION WITH THE RN, BLOOD PRESSURE 146/81, AFEBRILE, SATURATING NORMAL ON ROOM AIR. THE PATIENT IS ALERT ORIENTED X3, TOLERATING DIET, BUT NO BOWEL MOVEMENT TODAY. CBC SHOWS A HEMOGLOBIN OF 60.3, HEMATOCRIT 50.2, WBC 12.7, PLATELET COUNT OF 221. SODIUM 137, POTASSIUM 4.3, BUN OF 60, CREATININE 1.2, MAGNESIUM 2.1. WE WILL FOLLOW REPEAT CBC, TRANSFUSE 1 UNIT OF PRBC IF HEMOGLOBIN LESS THAN SEVEN OR EQUAL TO SEVEN. CREATININE SLIGHTLY ELEVATED TODAY AT 1.2 COMPARED TO YESTERDAY 0.9, FOLLOW REPEAT CMP. REPLACE ELECTROLYTES IV PER PROTOCOL. CONTINUE IV FLUIDS TO FOLLOW SURGICAL INPUT RECOMMENDATION, FOLLOW A.M. LABS. PLAN OF ACTION DISCUSSED WITH BOTH THE PATIENT AND THE AT BEDSIDE, ALL QUESTIONS ANSWERED, AGREED AND UNDERSTOOD THE INFORMATION PROVIDED. 09/14 patient remains admitted to medical floor, comfortably in bed, awake, alert oriented x3, following commands. Patient has a bowel movement yesterday. Abdomen still looks mildly distended, KUB reviewed, possible small bowel obstruction, CT of the abdomen ordered, finding consistent with ileus. There is a 1.6 cm hypodense lesion in segment eight of the liver. We will order liver ultrasound. We will keep the patient NPO today, we will follow GI input recommendation. Continue broad-spectrum antibiotics, trend WBC in a.m., replace electrolytes IV per protocol. Continue to encourage ambulation. KUB reported as follows: IMPRESSION: Abnormally dilated loops of small bowel in the abdomen with air-fluid levels, concerning for Small bowel obstruction. Contrast CT Abdomen and pelvis is recommended for further evaluation if clinically warranted. CT of the abdomen reported as follows: IMPRESSION: Post extended right hemicolectomy status with surgical anastomosis of the ileal loops to the skin. Scattered diverticulosis of the distal descending and sigmoid colon. Postsurgical changes in the anterior abdominal wall with air locules in the anterior abdominal wall in the bilateral scrotum. Diffuse subcutaneous fat stranding and a drainage catheter are identified in the left paracolic gutter. No obvious collection is identified. Mild fluid-filled distended jejunal and ileal loops, measuring up to 3.6 cm, consistent with ileus. Enlarged prostate. Diffuse fatty infiltration of the liver. A 1.6 cm hypodense lesion in segment 8 ofthe liver. Diffuse coronary artery calcifications. REVIEW OF SYSTEMS CONSTITUTIONAL: Denies fevers, chills, or night sweats. No unintentional weight loss reported. NEUROLOGICAL: Denies headache, amaurosis fugax, motor weakness, sensory deficit, vertigo/spinning sensation, gait abnormalities, or tremors. ENT: No hearing loss, otalgia, otorrhea, rhinitis, rhinorrhea, hoarseness, or sore throat. CARDIOVASCULAR: Denies any exertional angina, dyspnea on exertion, orthopnea, paroxysmal nocturnal dyspnea, palpitations, life-threatening arrhythmias, claudication. PULMONARY: Denies any shortness of breath, cough, phlegm/sputum, hemoptysis, pleuritic chest pain. SLEEP: Denies morning headaches, daytime somnolence or napping. Denies difficulty falling asleep, staying asleep, waking from sleep. Denies knowledge of snoring. GASTROINTESTINAL: reports having abdominal pain post surgery as expected GENITOURINARY: Denies frequency, urgency, nocturia, hematuria or incontinence (Storage/Irritative symptoms.) Low urinary stream, straining to void, urinary intermittency or hesitancy, splitting of the voiding stream, terminal dribbling. ENDOCRINOLOGIC: Denies polyuria, polydipsia, polyphagia or heat/cold int olerances. HEMATOLOGIC: Denies thrombophilia/previous clots, or coagulopathy/bleeding disorders. ONCOLOGIC: Denies personal history of malignancy. DERMATOLOGIC: Denies rashes or pruritus. PSYCHIATRIC: Denies any suicidal or homicidal ideation. Denies hallucinations. PHYSICAL EXAM GENERAL APPEARANCE: The patient is sleepy, but responds to verbal stimuli, able to tell me his name and responds to questions appropriately NEUROLOGICAL: Cranial nerves II-XII grossly intact. Neurological examination is nonfocal HEENT: Face is symmetric. Pupils are equal and reactive. Extraocular movements are intact. NECK: Supple. No JVD. No thyromegaly. No submental, submandibular, pre- /postauricular, occipital or supraclavicular lymphadenopathy. CHEST: Normal chest expansion. No Telemetry. LUNGS: Absence of any rales, rhonchi or any wheezing. CARDIOVASCULAR: Regular. S1 and S2 normal. No appreciable rubs, murmurs or gallops. ABDOMEN: Soft, laparoscopic abdominal incision site, appears clean, dry with no significant bleeding. JILL drain noted with serosanguineous output : Deferred. No Yeung. EXTREMITIES: Non-edematous and not cyanotic. No clubbing. Good capillary refill. SKIN: No skin breakdown. Vital Signs (last 8hr) Date Time Temp Pulse Resp B/P (MAP) Pulse Ox O2 Delivery O2 Flow Rate FiO2 09/14/25 07:58 98.2 80 16 134/69 95 Room Air 09/14/25 04:25 98.2 76 18 119/68 95 Room Air 21 LABS: Laboratory: Test 09/14/25 11:59 09/14/25 03:36 09/13/25 03:12 Range/Units Whole Blood Glucose 187 H 70-110 MG/DL White Blood Count 14.8 H 4.8-10.8 K/uL Red Blood Count 5.38 4.50-6.20 MIL/uL Hemoglobin 15.6 14.0-18.0 g/dL Hematocrit 47.6 42-54 % Mean Corpuscular Volume 88.5 79-99 fL Mean Corpuscular Hemoglobin 29.0 27.0-33.0 pg Mean Corpuscular Hemoglobin Concent 32.8 32.0-36.0 g/dL Red Cell Distribution Width 12.6 11.0-15.5 % Platelet Count 246 130-400 K/uL Mean Platelet Volume 10.3 7.5-10.5 fL Immature Granulocyte % (Auto) 0.4 0-1 % Neutrophils (%) (Auto) 77.9 H 40.0-77.0 % Lymphocytes (%) (Auto) 8.8 L 21.0-51.0 % Monocytes (%) (Auto) 12.6 3.0-13.0 % Eosinophils (%) (Auto) 0.1 0.0-8.0 % Basophils (%) (Auto) 0.2 0.0-5.0 % Neutrophils # (Auto) 11.6 H 1.8-7.7 K/uL Lymphocytes # (Auto) 1.3 1.0-4.8 K/uL Monocytes # (Auto) 1.9 H 0.1-1.0 K/uL Eosinophils # (Auto) 0.01 0.00-0.70 K/uL Basophils # (Auto) 0.03 0.00-0.20 K/uL Absolute Immature Granulocyte (auto 0.06 0-1 K/uL Nucleated Red Blood Cells 0.0 0.0-0.19 % Sodium Level 137 136-145 mmol/L Potassium Level 3.7 3.5-5.1 mmol/L Chloride Level 101 101-111 mmol/L Carbon Dioxide Level 26 21-32 mmol/L Blood Urea Nitrogen 19 H 7-18 mg/dL Creatinine 1.1 0.5-1.3 mg/dL Glomerular Filtration Rate Calc 73 >90 mL/min Random Glucose 183 H 70-105 mg/dL Total Calcium 8.8 8.5-10.1 mg/dL Magnesium Level 2.30 1.80-2.40 mg/dL Total Bilirubin 0.8 0.2-1.0 mg/dL Aspartate Amino Transf (AST/SGOT) 22 10-37 U/L Alanine Aminotransferase (ALT/SGPT) 38 12-78 U/L Alkaline Phosphatase 69 50-136 U/L Total Protein 6.7 6.0-8.3 g/dL Albumin 3.4 L 3.5-5.0 g/dL White Cell Morphology Comment See comments Current Medications Medications (Trade) Dose Ordered Sig/Martin Route PRN Reason Start Time Stop Time Status Last Admin Dose Admin Acetaminophen (TYLenol 325MG TAB) 650 mg Q6H PO 09/12/25 15:30 10/12/25 15:29 09/14/25 04:46 650 MG Amlodipine Besylate (NorvASC 5MG TAB) 5 mg HS PO 09/12/25 21:00 10/12/25 20:59 09/13/25 20:47 5 MG Aspirin (Aspirin 81mg Chew Tab) 81 mg DAILY PO 09/13/25 09:00 10/13/25 08:59 09/13/25 08:21 81 MG Atorvastatin Calcium (LIPItor 40MG) 40 mg HS PO 09/12/25 21:00 10/12/25 20:59 09/13/25 20:47 40 MG Dextrose (D50w) 50 ml AD PRN IV HYPOGLYCEMIA PROTOCOL 09/12/25 19:00 10/12/25 18:59 Enoxaparin Sodium (Lovenox) 40 mg DAILY SQ 09/13/25 09:00 10/13/25 08:59 09/14/25 10:05 40 MG Ertapenem 50 ml @ 100 mls/hr ONCALL IV 09/12/25 07:00 09/12/25 15:43 DC Famotidine (Pepcid 20mg Tab) 20 mg BID PO 09/12/25 21:00 10/12/25 20:59 09/13/25 20:47 20 MG Fentanyl Citrate (FENTanyl CITRate PF 50 MCG/ 1 ML 2ML VIAL) 25 mcg Q5MIN PRN IVP PAIN LEVEL 7 TO 10 09/12/25 10:00 09/12/25 16:59 DC 09/12/25 15:49 25 MCG Gabapentin (NEURontin 100 mg CAP) 100 mg TID PO 09/12/25 21:00 10/12/25 20:59 09/13/25 20:47 100 MG Glucagon (Glucagon 1mg Kit) 1 mg AD PRN IM HYPOGLYCEMIA PROTOCOL 09/12/25 19:00 10/12/25 18:59 Hydralazine HCl (APRESOLine 20MG INJ) 5 mg Q6H PRN IV ADMINISTER FOR SBP > 160 09/12/25 19:00 10/12/25 18:59 Hydromorphone HCl (DiLAUDid 0.5MG INJ) 0.5 mg Q4H PRN IVP SEVERE PAIN (7-10) 09/12/25 15:30 09/17/25 15:29 09/13/25 00:20 0.5 MG Insulin Human Regular (humuLIN R 100 UNIT/ML 3ML) AD PRN SQ SLIDING SCALE COVERAGE 09/12/25 15:30 09/12/25 18:53 DC Insulin Human Regular (humuLIN R 100 UNIT/ML 3ML) INSULIN SLIDING SCAL... ACHS SQ 09/12/25 21:00 10/12/25 20:59 Ketorolac Tromethamine (toRADol) 30 mg AD PRN IV PAIN LEVEL 1 TO 3 09/12/25 10:00 09/12/25 16:59 DC Lactated Ringer's 1,000 ml @ 50 mls/hr Q20H IV 09/12/25 15:30 10/12/25 15:29 09/13/25 12:59 50 MLS/HR Metoclopramide HCl (regLAN 10MG IV) 10 mg AD PRN IVP NAUSEA/VOMITING 09/12/25 10:00 09/12/25 16:59 DC Morphine Sulfate (morPHINE 2MG SYG) 2 mg AD PRN IVP PAIN LEVEL 4 TO 6 09/12/25 10:00 09/12/25 16:59 DC Naloxone HCl (NARcan 0.4mg/1 mL) 0.1 mg AD PRN IVP RESPIRATORY SYMPTOMS 09/12/25 10:00 09/12/25 16:59 DC Ondansetron HCl (zoFRAN 4MG INJ) 4 mg AD PRN IVP NAUSEA/VOMITING 09/12/25 10:00 09/12/25 16:59 DC Ondansetron HCl (zoFRAN 4MG INJ) 4 mg Q4H PRN IVP NAUSEA 09/12/25 15:30 10/12/25 15:29 09/14/25 00:00 4 MG Oxycodone HCl (ROXicoDONE) 5 mg Q4H PRN PO MODERATE PAIN (4-6) 09/12/25 15:30 09/19/25 15:29 09/13/25 20:55 5 MG Piperacillin Sod/ Tazobactam Sod (Zosyn 3.375gm+NS 50ml) 3.375 gm Q8H IVPB 09/12/25 16:00 09/14/25 15:59 09/14/25 10:05 3.375 GM Promethazine HCl (Phenergan) 25 mg AD PRN IM NAUSEA/VOMITING 09/12/25 10:00 09/12/25 16:59 DC Simethicone (Mylicon) 160 mg Q6H6 PO 09/13/25 18:00 10/13/25 17:59 09/14/25 04:46 160 MG Sodium Chloride (NS 50ml) 50 ml AD IV 09/13/25 08:00 09/12/25 15:42 DC DIAGNOSTICS / RADIOLOGY: [ ] ASSESSMENT: Status post robotic extended right colectomy by Dr. Goyal, 09/12/2025 History of unresectable tubulovillous midtransverse colon polyp measuring about 30 mm involving the mid transverse colon, POA History of HI with previous history of PCI, POA Hypertension, POA Hyperlipidemia, POA Prior history of GI bleeding, POA Obesity, POA Rule out obstructive sleep apnea, POA Abdominal distention due to ileus 1.6 cm hypodense lesion segment eight of the liver Diffuse coronary artery calcifications PLAN: patient remains admitted to medical floor, comfortably in bed, awake, alert oriented x3, following commands. Patient has a bowel movement yesterday. Abdomen still looks mildly distended, KUB reviewed, possible small bowel obstruction, CT of the abdomen ordered, finding consistent with ileus. There is a 1.6 cm hypodense lesion in segment eight of the liver. We will order liver ultrasound. We will keep the patient NPO today, we will follow GI input recommendation. Continue broad-spectrum antibiotics, trend WBC in a.m., replace electrolytes IV per protocol. Continue to encourage ambulation. KUB reported as follows: IMPRESSION: Abnormally dilated loops of small bowel in the abdomen with air-fluid levels, concerning for Small bowel obstruction. Contrast CT Abdomen and pelvis is recommended for further evaluation if clinically warranted. CT of the abdomen reported as follows: IMPRESSION: Post extended right hemicolectomy status with surgical anastomosis of the ileal loops to the skin. Scattered diverticulosis of the distal descending and sigmoid colon. Postsurgical changes in the anterior abdominal wall with air locules in the anterior abdominal wall in the bilateral scrotum. Diffuse subcutaneous fat stranding and a drainage catheter are identified in the left paracolic gutter. No obvious collection is identified. Mild fluid-filled distended jejunal and ileal loops, measuring up to 3.6 cm, consistent with ileus. Enlarged prostate. Diffuse fatty infiltration of the liver. A 1.6 cm hypodense lesion in segment 8 ofthe liver. Diffuse coronary artery calcifications. NEURO: MINIMIZE CENTRAL ACTING MEDICATIONS POSSIBLE. FALL PRECAUTIONS. WELL LIGHTED ROOM THROUGH THE DAY AND MINIMIZE INTERRUPTIONS THROUGH THE NIGHT TO PREVENT ACUTE DELIRIUM. PULMONARY: SUPPLEMENTAL 02 NEEDED BIPAP NECESSARY, FOR RESPIRATORY DISTRESS TITRATE FIO2 TO KEEP SPO2 > OR = 90% DUONEBS AND CPT NEEDED IS HOURLY WHILE AWAKE FOR PULMONARY HYGIENE PRN OUT OF BED TO CHAIR TOLERATED MAINTAIN ASPIRATION PRECAUTIONS AT ALL TIMES CARDIOVASCULAR: FOLLOW HEMODYNAMICS. VITAL SIGNS PER FACILITY PROTOCOL GI & NUTRITION: CONTINUE NUTRITIONAL SUPPORT ASPIRATIONS PRECAUTIONS PROKINETIC AGENTS AND LAXATIVES NEEDED KIDNEYS & ELECTROLYTES: STRICT MONITORING OF INTAKE AND OUTPUT DAILY WEIGHTS AVOID NEPHROTOXIC AGENTS MONITOR ELECTROLYTES AND REPLACE NEEDED GOAL URINE OUTPUT OF 30ML/HR OR 0.5ML/KG/HR MEDICATIONS TO BE DOSED ACCORDING TO RENAL FUNCTION. AVOID CONTRAST IF POSSIBLE ENDOCRINE: MAINTAIN BLOOD GLUCOSE BETWEEN 100-180 AT ALL TIMES. INSULIN SLIDING SCALE FOR BLOOD GLUCOSE MANAGEMENT HYPOGLYCEMIA AND HYPERGLYCEMIA PROTOCOL IN PLACE INFECTIOUS DISEASE: TREND TEMPERATURE, WBC AND PROCALCITONIN LEVEL FOLLOW CULTURES, DEESCALATE ANTIBIOTICS SOON POSSIBLE. PANCULTURE IF NEW ONSET FEVER HEMATOLOGY & COAGULATION: MONITOR H&H. KEEP HGB > 7 TRANSFUSE 1 UNIT OF PRBC FOR HGB < 7 TRANSFUSE 1 PACK OF PLATELETS OF PLATELETS < 20, 000 WATCH FOR ANY SIGNS AND SYMPTOMS OF BLEEDING SKIN: PRESSURE ULCER PREVENTION PER FACILITY PROTOCOL SPECIALTY MATTRESS NEEDED ORTHO/REHAB CONTINUE PT/OT PRN: MEDICATIONS TYLENOL 650 MG PO EVERY 4 HRS FOR FEVER ZOFRAN 4 MG IV EVERY 6 HRS FOR N/V HYDRALAZINE 5 MG IV EVERY 4 HRS SYSTOLIC PRESSURE > 160 BOWEL REGIMENT: LACTULOSE 20 GM PO BID PRN CONSTIPATION SUPPORTIVE MEASURES: CONTINUE GI AND DVT PROPHYLAXIS DISPOSITION: PENDING IMPROVEMENT IN CLINICAL CONDITION ALL QUESTIONS ANSWERED TIME SPENT: > 35 MIN GILBERT KIM MD Sep 14, 2025 12:19
--- NOTE | 2025-09-14 12:45 | PN ---
[facility] PROGRESS NOTE Date of Visit: Sep 14, 2025 Time of Visit: 12:44 Events / Notes: No acute events overnight. s/p right colectomy. Abdomen distended but soft. He had a BM. No nausea or vomiting and he is tolerating diet. Incisions clean, dry and intact. 09/14 Abdomen distended but soft. He had two episodes of emesis overnight. JILL drain in place. Review of Systems: CONSTITUTIONAL: No malaise or change in sensation of wellbeing. ENMT: No rhinorrhea, otorrhea, sinus pain, ear ache. CARDIOVASCULAR: No angina, palpitations, orthopnea or paroxysmal dyspnea. RESPIRATORY: No SOB. GASTROINTESTINAL: No abdominal pain, nausea, vomiting, diarrhea, hematemesis, melena or change in the patient's habitual bowel movements consistency/number. GENITOURINARY: No dysuria, hematuria or change in bladder continence. MUSCULOSKELETAL: No new muscle pain or decrease in muscular strength. No new joint swelling, redness or tenderness. SKIN: No new rash. Physical Exam: GEN: Awake, alert, oriented in person, time and place, and in no acute distress. HEENT: No sinus tenderness. Tympanic membranes were not examined. No rhinorrhea. Oral pharyngeal mucosa is pink, moist and within normal limits. Neck is supple with no cervical lymphadenopathy, thyromegaly or JVD. CHEST: Inspection, palpation and percussion of the chest were unremarkable. Lung auscultation revealed normal breath sounds bilaterally. CARDIAC: PMI is within normal limits. Heart sounds are regular. Normal S1, S2. No gallop or murmur. ABD: Soft, non-tender and not distended. No peritoneal signs on palpation. No organomegaly. Normal bowel sounds. EXT: No cyanosis or clubbing. No edema. SKIN: Intact. No rashes. JOINTS: No evidence of synovitis or acute arthritis. NEURO: Alert and oriented to name, place and person. Cranial nerve examination is unremarkable. No focal motor deficits. Normal speech. Gait is normal. Strength is normal. Vital Signs (last 8hr) Date Time Temp Pulse Resp B/P (MAP) Pulse Ox O2 Delivery O2 Flow Rate FiO2 09/14/25 12:00 98.8 107 18 143/96 92 Room Air 09/14/25 07:58 98.2 80 16 134/69 95 Room Air Laboratory: [ ] Laboratory: Test 09/14/25 11:59 09/14/25 03:36 09/13/25 03:12 Range/Units Whole Blood Glucose 187 H 70-110 MG/DL White Blood Count 14.8 H 4.8-10.8 K/uL Red Blood Count 5.38 4.50-6.20 MIL/uL Hemoglobin 15.6 14.0-18.0 g/dL Hematocrit 47.6 42-54 % Mean Corpuscular Volume 88.5 79-99 fL Mean Corpuscular Hemoglobin 29.0 27.0-33.0 pg Mean Corpuscular Hemoglobin Concent 32.8 32.0-36.0 g/dL Red Cell Distribution Width 12.6 11.0-15.5 % Platelet Count 246 130-400 K/uL Mean Platelet Volume 10.3 7.5-10.5 fL Immature Granulocyte % (Auto) 0.4 0-1 % Neutrophils (%) (Auto) 77.9 H 40.0-77.0 % Lymphocytes (%) (Auto) 8.8 L 21.0-51.0 % Monocytes (%) (Auto) 12.6 3.0-13.0 % Eosinophils (%) (Auto) 0.1 0.0-8.0 % Basophils (%) (Auto) 0.2 0.0-5.0 % Neutrophils # (Auto) 11.6 H 1.8-7.7 K/uL Lymphocytes # (Auto) 1.3 1.0-4.8 K/uL Monocytes # (Auto) 1.9 H 0.1-1.0 K/uL Eosinophils # (Auto) 0.01 0.00-0.70 K/uL Basophils # (Auto) 0.03 0.00-0.20 K/uL Absolute Immature Granulocyte (auto 0.06 0-1 K/uL Nucleated Red Blood Cells 0.0 0.0-0.19 % Sodium Level 137 136-145 mmol/L Potassium Level 3.7 3.5-5.1 mmol/L Chloride Level 101 101-111 mmol/L Carbon Dioxide Level 26 21-32 mmol/L Blood Urea Nitrogen 19 H 7-18 mg/dL Creatinine 1.1 0.5-1.3 mg/dL Glomerular Filtration Rate Calc 73 >90 mL/min Random Glucose 183 H 70-105 mg/dL Total Calcium 8.8 8.5-10.1 mg/dL Magnesium Level 2.30 1.80-2.40 mg/dL Total Bilirubin 0.8 0.2-1.0 mg/dL Aspartate Amino Transf (AST/SGOT) 22 10-37 U/L Alanine Aminotransferase (ALT/SGPT) 38 12-78 U/L Alkaline Phosphatase 69 50-136 U/L Total Protein 6.7 6.0-8.3 g/dL Albumin 3.4 L 3.5-5.0 g/dL White Cell Morphology Comment See comments Current Medications Medications (Trade) Dose Ordered Sig/Martin Route PRN Reason Start Time Stop Time Status Last Admin Dose Admin Acetaminophen (TYLenol 325MG TAB) 650 mg Q6H PO 09/12/25 15:30 10/12/25 15:29 09/14/25 04:46 650 MG Amlodipine Besylate (NorvASC 5MG TAB) 5 mg HS PO 09/12/25 21:00 10/12/25 20:59 09/13/25 20:47 5 MG Aspirin (Aspirin 81mg Chew Tab) 81 mg DAILY PO 09/13/25 09:00 10/13/25 08:59 09/13/25 08:21 81 MG Atorvastatin Calcium (LIPItor 40MG) 40 mg HS PO 09/12/25 21:00 10/12/25 20:59 09/13/25 20:47 40 MG Dextrose (D50w) 50 ml AD PRN IV HYPOGLYCEMIA PROTOCOL 09/12/25 19:00 10/12/25 18:59 Enoxaparin Sodium (Lovenox) 40 mg DAILY SQ 09/13/25 09:00 10/13/25 08:59 09/14/25 10:05 40 MG Ertapenem 50 ml @ 100 mls/hr ONCALL IV 09/12/25 07:00 09/12/25 15:43 DC Famotidine (Pepcid 20mg Tab) 20 mg BID PO 09/12/25 21:00 10/12/25 20:59 09/13/25 20:47 20 MG Fentanyl Citrate (FENTanyl CITRate PF 50 MCG/ 1 ML 2ML VIAL) 25 mcg Q5MIN PRN IVP PAIN LEVEL 7 TO 10 09/12/25 10:00 09/12/25 16:59 DC 09/12/25 15:49 25 MCG Gabapentin (NEURontin 100 mg CAP) 100 mg TID PO 09/12/25 21:00 10/12/25 20:59 09/13/25 20:47 100 MG Glucagon (Glucagon 1mg Kit) 1 mg AD PRN IM HYPOGLYCEMIA PROTOCOL 09/12/25 19:00 10/12/25 18:59 Hydralazine HCl (APRESOLine 20MG INJ) 5 mg Q6H PRN IV ADMINISTER FOR SBP > 160 09/12/25 19:00 10/12/25 18:59 Hydromorphone HCl (DiLAUDid 0.5MG INJ) 0.5 mg Q4H PRN IVP SEVERE PAIN (7-10) 09/12/25 15:30 09/17/25 15:29 09/13/25 00:20 0.5 MG Insulin Human Regular (humuLIN R 100 UNIT/ML 3ML) AD PRN SQ SLIDING SCALE COVERAGE 09/12/25 15:30 09/12/25 18:53 DC Insulin Human Regular (humuLIN R 100 UNIT/ML 3ML) INSULIN SLIDING SCAL... ACHS SQ 09/12/25 21:00 10/12/25 20:59 Ketorolac Tromethamine (toRADol) 30 mg AD PRN IV PAIN LEVEL 1 TO 3 09/12/25 10:00 09/12/25 16:59 DC Lactated Ringer's 1,000 ml @ 50 mls/hr Q20H IV 09/12/25 15:30 10/12/25 15:29 09/13/25 12:59 50 MLS/HR Metoclopramide HCl (regLAN 10MG IV) 10 mg AD PRN IVP NAUSEA/VOMITING 09/12/25 10:00 09/12/25 16:59 DC Morphine Sulfate (morPHINE 2MG SYG) 2 mg AD PRN IVP PAIN LEVEL 4 TO 6 09/12/25 10:00 09/12/25 16:59 DC Naloxone HCl (NARcan 0.4mg/1 mL) 0.1 mg AD PRN IVP RESPIRATORY SYMPTOMS 09/12/25 10:00 09/12/25 16:59 DC Ondansetron HCl (zoFRAN 4MG INJ) 4 mg AD PRN IVP NAUSEA/VOMITING 09/12/25 10:00 09/12/25 16:59 DC Ondansetron HCl (zoFRAN 4MG INJ) 4 mg Q4H PRN IVP NAUSEA 09/12/25 15:30 10/12/25 15:29 09/14/25 00:00 4 MG Oxycodone HCl (ROXicoDONE) 5 mg Q4H PRN PO MODERATE PAIN (4-6) 09/12/25 15:30 09/19/25 15:29 09/13/25 20:55 5 MG Piperacillin Sod/ Tazobactam Sod (Zosyn 3.375gm+NS 50ml) 3.375 gm Q8H IVPB 09/12/25 16:00 09/14/25 15:59 09/14/25 10:05 3.375 GM Promethazine HCl (Phenergan) 25 mg AD PRN IM NAUSEA/VOMITING 09/12/25 10:00 09/12/25 16:59 DC Simethicone (Mylicon) 160 mg Q6H6 PO 09/13/25 18:00 10/13/25 17:59 09/14/25 04:46 160 MG Sodium Chloride (NS 50ml) 50 ml AD IV 09/13/25 08:00 09/12/25 15:42 DC Diagnostics / Radiology: [COPY/PASTE HERE IF NO REPORTS PLEASE DELETE SECTION] Assessment: [ ] Plan: Await CT Encourage ambulation EDUARDO DELONG CUTTER GAS Sep 14, 2025 12:45
--- NOTE | 2025-09-14 13:15 | NUR ---
PHYSICIAN ORDER SPOKE WITH EDIL VILLALOBOS WITH [facility] [employer]. PER DR. HERNANDEZ ADMINISTER ONE TIME DOSE OF DECADRON [address] ORDERS FOR SCHEDULED REGLAN 10MG IV EVERY [address] PATIENT ON CLEAR LIQUID DIET AND HAVE PATIENT AMBULATE 6X TODAY.
--- NOTE | 2025-09-14 14:00 | NUR ---
[facility] CHANGED DRESSING AROUND JILL DRAIN SITE DRESSING WAS SOILED WITH SANGUINEOS DRAINAGE CLEANED SITE, COVERED WITH GAUZE AND SECURED WITH TEGADERM SITE WAS LEFT CLEAN INTACT AND DRY PATIENT TOLERATED WELL
[2025-09-14 16:00] VITALS: BP 148/86; PULSE 84; RESP 18; TEMP 99.1
--- NOTE | 2025-09-14 19:00 | NUR ---
INCISION CHANGED INCISION SITE DRESSING OLD DRESSING HAD SANGENEOUS DRAINAGE ON IT NEW DRESSING WAS LEFT CLEAN DRY AND INTACT JILL DRAIN ALSO DRAINED
[2025-09-14 20:00] VITALS: BP 135/81; PULSE 75; RESP 18; TEMP 98.4; O2SAT 96
[2025-09-15] VITALS: BP 118/65; PULSE 66; RESP 18; TEMP 98.5
[2025-09-15 04:00] VITALS: BP 118/60; PULSE 65; RESP 18; TEMP 98.1
--- NOTE | 2025-09-15 04:45 | HMCIMG ---
EXAMINATION: ULTRASOUND OF THE ABDOMEN (LIMITED) WITH COLOR DOPPLER. CLINICAL HISTORY: Hypodense liver lesion on prior CT. COMPARISON: CT abdomen and pelvis without contrast form the same day. TECHNIQUE: Real-time grayscale ultrasound images of the abdomen. In addition, color Doppler is medically necessary to perform in order to evaluate vascularity and blood flow. FINDINGS: Liver: Normal in caliber, the right hepatic lobe measures 15.0 cm in the craniocaudal dimension. There is increased echogenicity of the hepatic parenchyma. There is no focal hepatic abnormality or intrahepatic biliary ductal dilatation. There is normal spectral Doppler of the main portal vein. Gallbladder: Within normal limits with normal wall thickness (0.2 cm). No hyperemia or pericholecystic free fluid. There is no cholelithiasis. Common bile duct is normal in caliber, measuring 0.4 cm. Pancreas: Obscured by overlying bowel gas. The right kidney is normal in caliber, the right kidney measures 10.5 x 5.0 x 5.1 cm in craniocaudal, AP, and transverse dimensions respectively. There is normal renal cortical thickness, and cortical echogenicity. There is no renal calculus or hydronephrosis. There is no free fluid in the peritoneal cavity. IMPRESSION: Hepatic steatosis. Unable to visualize the hypodense liver lesion on ultrasound. Recommend contrast CT abdomen. /Merritt
[2025-09-15 05:25] LABS: IMMATURE GRANULOCYTE ABSOLUTE 0.06 K/uL (0-1); NUCLEATED RED BLOOD CELLS 0.0 % (0.0-0.19); PLATELET COUNT (AUTO) 244 K/uL (130-400); RED BLOOD CELL COUNT(AUTO) 5.08 MIL/uL (4.50-6.20); RED CELL DISTRIBUTION WIDTH 12.1 % (11.0-15.5); WHITE BLOOD COUNT (AUTO) 14.8 K/uL (4.8-10.8)
[2025-09-15 05:44] LABS: ASPARTATE AMINOTRANSFERASE 19.0 U/L (10-37); CREATININE 0.8 mg/dL (0.5-1.3); GLOMERULAR FILTR. RATE CALC 96.0 mL/min (>90); GLUCOSE,RANDOM 158.0 mg/dL (70-105); SODIUM SERUM 136.0 mmol/L (136-145); TOTAL PROTEIN, SERUM 6.3 g/dL (6.0-8.3); UREA NITROGEN, BLOOD 18.0 mg/dL (7-18)
[2025-09-15 08:00] VITALS: BP 141/82; PULSE 65; RESP 17; TEMP 98.4; O2SAT 95
[2025-09-15 12:00] VITALS: BP 146/84; PULSE 63; RESP 18; TEMP 98.3
--- NOTE | 2025-09-15 12:56 | PN ---
COLORECTAL PROGRESS NOTE Date of Visit: Sep 15, 2025 Time of Visit: 12:56 Events / Notes: No acute events overnight. s/p right colectomy. Abdomen distended but soft. He had a BM. No nausea or vomiting and he is tolerating diet. Incisions clean, dry and intact. 09/14 Abdomen distended but soft. He had two episodes of emesis overnight. JILL drain in place. Review of Systems: CONSTITUTIONAL: No malaise or change in sensation of wellbeing. ENMT: No rhinorrhea, otorrhea, sinus pain, ear ache. CARDIOVASCULAR: No angina, palpitations, orthopnea or paroxysmal dyspnea. RESPIRATORY: No SOB. GASTROINTESTINAL: No abdominal pain, nausea, vomiting, diarrhea, hematemesis, melena or change in the patient's habitual bowel movements consistency/number. GENITOURINARY: No dysuria, hematuria or change in bladder continence. MUSCULOSKELETAL: No new muscle pain or decrease in muscular strength. No new joint swelling, redness or tenderness. SKIN: No new rash. Physical Exam: GEN: Awake, alert, oriented in person, time and place, and in no acute distress. HEENT: No sinus tenderness. Tympanic membranes were not examined. No rhinorrhea. Oral pharyngeal mucosa is pink, moist and within normal limits. Neck is supple with no cervical lymphadenopathy, thyromegaly or JVD. CHEST: Inspection, palpation and percussion of the chest were unremarkable. Lung auscultation revealed normal breath sounds bilaterally. CARDIAC: PMI is within normal limits. Heart sounds are regular. Normal S1, S2. No gallop or murmur. ABD: Soft, non-tender and not distended. No peritoneal signs on palpation. No organomegaly. Normal bowel sounds. EXT: No cyanosis or clubbing. No edema. SKIN: Intact. No rashes. JOINTS: No evidence of synovitis or acute arthritis. NEURO: Alert and oriented to name, place and person. Cranial nerve examination is unremarkable. No focal motor deficits. Normal speech. Gait is normal. Strength is normal. Vital Signs (last 8hr) Date Time Temp Pulse Resp B/P (MAP) Pulse Ox O2 Delivery O2 Flow Rate FiO2 09/15/25 12:00 98.2 63 18 146/84 95 Room Air 09/15/25 08:00 95 Room Air* 0 21 09/15/25 08:00 98.4 65 17 141/82 95 Room Air Laboratory: [ ] Laboratory: Test 09/15/25 11:18 09/15/25 05:00 Range/Units Whole Blood Glucose 141 H 70-110 MG/DL White Blood Count 14.8 H 4.8-10.8 K/uL Red Blood Count 5.08 4.50-6.20 MIL/uL Hemoglobin 14.8 14.0-18.0 g/dL Hematocrit 44.0 42-54 % Mean Corpuscular Volume 86.6 79-99 fL Mean Corpuscular Hemoglobin 29.1 27.0-33.0 pg Mean Corpuscular Hemoglobin Concent 33.6 32.0-36.0 g/dL Red Cell Distribution Width 12.1 11.0-15.5 % Platelet Count 244 130-400 K/uL Mean Platelet Volume 10.0 7.5-10.5 fL Immature Granulocyte % (Auto) 0.4 0-1 % Neutrophils (%) (Auto) 78.4 H 40.0-77.0 % Lymphocytes (%) (Auto) 9.7 L 21.0-51.0 % Monocytes (%) (Auto) 10.9 3.0-13.0 % Eosinophils (%) (Auto) 0.4 0.0-8.0 % Basophils (%) (Auto) 0.2 0.0-5.0 % Neutrophils # (Auto) 11.6 H 1.8-7.7 K/uL Lymphocytes # (Auto) 1.4 1.0-4.8 K/uL Monocytes # (Auto) 1.6 H 0.1-1.0 K/uL Eosinophils # (Auto) 0.06 0.00-0.70 K/uL Basophils # (Auto) 0.03 0.00-0.20 K/uL Absolute Immature Granulocyte (auto 0.06 0-1 K/uL Nucleated Red Blood Cells 0.0 0.0-0.19 % Sodium Level 136 136-145 mmol/L Potassium Level 4.2 3.5-5.1 mmol/L Chloride Level 102 101-111 mmol/L Carbon Dioxide Level 26 21-32 mmol/L Blood Urea Nitrogen 18 7-18 mg/dL Creatinine 0.8 0.5-1.3 mg/dL Glomerular Filtration Rate Calc 96 >90 mL/min Random Glucose 158 H 70-105 mg/dL Total Calcium 8.7 8.5-10.1 mg/dL Magnesium Level 2.10 1.80-2.40 mg/dL Total Bilirubin 0.8 0.2-1.0 mg/dL Aspartate Amino Transf (AST/SGOT) 19 10-37 U/L Alanine Aminotransferase (ALT/SGPT) 34 12-78 U/L Alkaline Phosphatase 69 50-136 U/L Total Protein 6.3 6.0-8.3 g/dL Albumin 2.9 L 3.5-5.0 g/dL Current Medications Medications (Trade) Dose Ordered Sig/Martin Route PRN Reason Start Time Stop Time Status Last Admin Dose Admin Acetaminophen (TYLenol 325MG TAB) 650 mg Q4H PRN PO MILD PAIN (1-3) 09/15/25 09:30 09/15/25 09:19 DC Acetaminophen (TYLenol 325MG TAB) 650 mg Q6H PO 09/12/25 15:30 10/12/25 15:29 09/15/25 08:12 650 MG Amlodipine Besylate (NorvASC 5MG TAB) 5 mg HS PO 09/12/25 21:00 10/12/25 20:59 09/14/25 20:32 5 MG Aspirin (Aspirin 81mg Chew Tab) 81 mg DAILY PO 09/13/25 09:00 10/13/25 08:59 09/15/25 08:11 81 MG Atorvastatin Calcium (LIPItor 40MG) 40 mg HS PO 09/12/25 21:00 10/12/25 20:59 09/14/25 20:32 40 MG Ceftriaxone Sodium (ROCEphine 1G INJ) 1 gm Q24H IVPB 09/15/25 08:30 09/25/25 08:29 09/15/25 08:28 1 GM Dextrose (D50w) 50 ml AD PRN IV HYPOGLYCEMIA PROTOCOL 09/12/25 19:00 10/12/25 18:59 Enoxaparin Sodium (Lovenox) 40 mg DAILY SQ 09/13/25 09:00 10/13/25 08:59 09/15/25 08:13 40 MG Ertapenem 50 ml @ 100 mls/hr ONCALL IV 09/12/25 07:00 09/12/25 15:43 DC Famotidine (Pepcid 20mg Tab) 20 mg BID PO 09/12/25 21:00 10/12/25 20:59 09/15/25 08:11 20 MG Fentanyl Citrate (FENTanyl CITRate PF 50 MCG/ 1 ML 2ML VIAL) 25 mcg Q5MIN PRN IVP PAIN LEVEL 7 TO 10 09/12/25 10:00 09/12/25 16:59 DC 09/12/25 15:49 25 MCG Gabapentin (NEURontin 100 mg CAP) 100 mg TID PO 09/12/25 21:00 10/12/25 20:59 09/15/25 08:14 100 MG Glucagon (Glucagon 1mg Kit) 1 mg AD PRN IM HYPOGLYCEMIA PROTOCOL 09/12/25 19:00 10/12/25 18:59 Hydralazine HCl (APRESOLine 20MG INJ) 5 mg Q6H PRN IV ADMINISTER FOR SBP > 160 09/12/25 19:00 10/12/25 18:59 Hydromorphone HCl (DiLAUDid 0.5MG INJ) 0.5 mg Q4H PRN IVP SEVERE PAIN (7-10) 09/12/25 15:30 09/17/25 15:29 09/13/25 00:20 0.5 MG Insulin Human Regular (humuLIN R 100 UNIT/ML 3ML) AD PRN SQ SLIDING SCALE COVERAGE 09/12/25 15:30 09/12/25 18:53 DC Insulin Human Regular (humuLIN R 100 UNIT/ML 3ML) INSULIN SLIDING SCAL... ACHS SQ 09/12/25 21:00 10/12/25 20:59 Ketorolac Tromethamine (toRADol) 30 mg AD PRN IV PAIN LEVEL 1 TO 3 09/12/25 10:00 09/12/25 16:59 DC Lactated Ringer's 1,000 ml @ 50 mls/hr Q20H IV 09/12/25 15:30 10/12/25 15:29 09/13/25 12:59 50 MLS/HR Metoclopramide HCl (regLAN 10MG IV) 10 mg AD PRN IVP NAUSEA/VOMITING 09/12/25 10:00 09/12/25 16:59 DC Metoclopramide HCl (regLAN 10MG IV) 10 mg Q6H IVP 09/14/25 13:30 09/14/25 13:35 DC Metoclopramide HCl (regLAN 10MG IV) 10 mg Q6H IVP 09/14/25 14:00 10/14/25 13:59 09/15/25 08:11 10 MG Metronidazole/ Sodium Chloride (flaGYL) 500 mg Q8H IV 09/15/25 08:30 09/25/25 08:29 09/15/25 08:28 500 MG Morphine Sulfate (morPHINE 2MG SYG) 2 mg AD PRN IVP PAIN LEVEL 4 TO 6 09/12/25 10:00 09/12/25 16:59 DC Naloxone HCl (NARcan 0.4mg/1 mL) 0.1 mg AD PRN IVP RESPIRATORY SYMPTOMS 09/12/25 10:00 09/12/25 16:59 DC Ondansetron HCl (zoFRAN 4MG INJ) 4 mg AD PRN IVP NAUSEA/VOMITING 09/12/25 10:00 09/12/25 16:59 DC Ondansetron HCl (zoFRAN 4MG INJ) 4 mg Q4H PRN IVP NAUSEA 09/12/25 15:30 10/12/25 15:29 09/14/25 00:00 4 MG Oxycodone HCl (ROXicoDONE) 5 mg Q4H PRN PO MODERATE PAIN (4-6) 09/12/25 15:30 09/19/25 15:29 09/13/25 20:55 5 MG Piperacillin Sod/ Tazobactam Sod (Zosyn 3.375gm+NS 50ml) 3.375 gm Q8H IVPB 09/12/25 16:00 09/14/25 15:59 DC 09/14/25 10:05 3.375 GM Promethazine HCl (Phenergan) 25 mg AD PRN IM NAUSEA/VOMITING 09/12/25 10:00 09/12/25 16:59 DC Simethicone (Mylicon) 160 mg Q6H6 PO 09/13/25 18:00 10/13/25 17:59 09/15/25 12:18 160 MG Sodium Chloride (NS 50ml) 50 ml AD IV 09/13/25 08:00 09/12/25 15:42 DC Diagnostics / Radiology: [COPY/PASTE HERE IF NO REPORTS PLEASE DELETE SECTION] Assessment: [ ] Plan: Soft diet Cleared for discharge if able to tolerate diet Encourage ambulation [employer] [employer] [employer] [facility] OPER[employer] Sep 15, 2025 12:56
--- NOTE | 2025-09-15 14:20 | DS ---
Discharge Summary Hospital Course Summary: The patient initially admitted to the hospital 09/12/25 hospitalist services were consulted for medical management. Hospitalist Consultation done 11/13/2024 as follows: This is a 70-year-old male with underlying history of hypertension, previous history of IA in 2000, GI bleed, hyperlipidemia with previous history of 3 cm tubulovillous polyp involving the proximal descending colon noted on colonoscopy from 07/2025 who is status post robotic extended right colectomy today by Dr. Goyal. Patient was seen postoperatively procedure, patient denies any significant complaint. States that abdominal pain is controlled. Patient states that he is still recovering from anesthesia. Denies any significant nausea or vomiting. Patient denies any active chest pain. Reports that he last took aspirin about five days prior to procedure. Denies any focal weakness or upper or lower extremities. Family at bedside does report that patient has a history of snoring but denies use of CPAP therapy at. Patient will be monitored closely postprocedure. We will see how patient progresses in the next 24-48 hours, we will follow this patient closely tonight. HOSPITAL COURSE 09/13 PATIENT REMAINS ADMITTED TO MEDICAL FLOOR, COMFORTABLY IN BED, NO ACUTE EVENTS OVERNIGHT PER DISCUSSION WITH THE RN, BLOOD PRESSURE 146/81, AFEBRILE, SATURATING NORMAL ON ROOM AIR. THE PATIENT IS ALERT ORIENTED X3, TOLERATING DIET, BUT NO BOWEL MOVEMENT TODAY. CBC SHOWS A HEMOGLOBIN OF 60.3, HEMATOCRIT 50.2, WBC 12.7, PLATELET COUNT OF 221. SODIUM 137, POTASSIUM 4.3, BUN OF 60, CREATININE 1.2, MAGNESIUM 2.1. WE WILL FOLLOW REPEAT CBC, TRANSFUSE 1 UNIT OF PRBC IF HEMOGLOBIN LESS THAN SEVEN OR EQUAL TO SEVEN. CREATININE SLIGHTLY ELEVATED TODAY AT 1.2 COMPARED TO YESTERDAY 0.9, FOLLOW REPEAT CMP. REPLACE ELECTROLYTES IV PER PROTOCOL. CONTINUE IV FLUIDS TO FOLLOW SURGICAL INPUT RECOMMENDATION, FOLLOW A.M. LABS. PLAN OF ACTION DISCUSSED WITH BOTH THE PATIENT AND THE AT BEDSIDE, ALL QUESTIONS ANSWERED, AGREED AND UNDERSTOOD THE INFORMATION PROVIDED. 09/14 patient remains admitted to medical floor, comfortably in bed, awake, alert oriented x3, following commands. Patient has a bowel movement yesterday. Abdomen still looks mildly distended, KUB reviewed, possible small bowel obstruction, CT of the abdomen ordered, finding consistent with ileus. There is a 1.6 cm hypodense lesion in segment eight of the liver. We will order liver ultrasound. We will keep the patient NPO today, we will follow GI input recommendation. Continue broad-spectrum antibiotics, trend WBC in a.m., replace electrolytes IV per protocol. Continue to encourage ambulation. KUB reported as follows: IMPRESSION: Abnormally dilated loops of small bowel in the abdomen with air-fluid levels, concerning for Small bowel obstruction. Contrast CT Abdomen and pelvis is recommended for further evaluation if clinically warranted. CT of the abdomen reported as follows: IMPRESSION: Post extended right hemicolectomy status with surgical anastomosis of the ileal loops to the skin. Scattered diverticulosis of the distal descending and sigmoid colon. Postsurgical changes in the anterior abdominal wall with air locules in the anterior abdominal wall in the bilateral scrotum. Diffuse subcutaneous fat stranding and a drainage catheter are identified in the left paracolic gutter. No obvious collection is identified. Mild fluid-filled distended jejunal and ileal loops, measuring up to 3.6 cm, consistent with ileus. Enlarged prostate. Diffuse fatty infiltration of the liver. A 1.6 cm hypodense lesion in segment 8 ofthe liver. Diffuse coronary artery calcifications. 09/15 today the patient is alert oriented x3, hemodynamically stable, walking in the hallway, tolerated diet, no nausea, no vomiting, no chest discomfort. At the time of my visit in the room, is present. Results of CT of the abdomen reviewed, discussed in detail. CT of the abdomen showing a 1.6 cm hypodense lesion in segment eight of the liver. Diffuse coronary artery calcifications. Per finding abdominal ultrasound was requested yesterday, able to visualize the hypodense liver lesion on ultrasound, recommended contrast CT abdomen. Per my discussion with the patient and the , they would prefer to as an outpatient once he is more medically recovered from the surgical intervention. A printed copy of the CT report has been provided so they can follow up with General surgery and primary care physician for referral for further imaging tests. In terms of the diffuse coronary artery calcifications, patient was recommended to follow up with his belt polisher as an outpatient. Both the patient and the agreed and understood the information provided. Front Desk Assistant(s): General Surgery Procedure(s): Operative Note: DATE OF PROCEDURE: 09/12/25 SURGEON: DEB GOYAL MD HOME WEATHERIZING WORKER: None ANESTHESIA: General ANESTHESIOLOGIST/INSURANCE UNDERWRITER SALES: INSURANCE UNDERWRITER SALES PREOPERATIVE DIAGNOSIS: Unresectable descending colon polyp POSTOPERATIVE DIAGNOSIS: Unresectable mid transverse colon polyp PROCEDURE: Robotic extended right colectomy Mobilization of splenic flexure Omental flap creation Systemic ICG for assessment of anastomotic grafts ESTIMATED BLOOD LOSS: Minimal INDICATIONS: Mr. Gibbs is a very pleasant 70-year-old male who was found to have an unresectable colon polyp which is also recurrent. He was offered surgical management wished to proceed. Complications, alternatives, risks and benefits of the procedure were discussed and include but not limited to infection, bleeding, injury to surrounding structures such as blood vessels organs, anastomotic leak, sepsis, need for permanent stoma, poor bowel function, recurrent disease as well as need for additional procedures. The patient and voiced complete understanding and wished to proceed with surgery. All other questions were answered to their satisfaction. DESCRIPTION OF PROCEDURE: After informed consent was obtained, the patient was taken to the operating room laid in the supine position. Once general endotracheal anesthesia was obtained, the patient was carefully placed into the lithotomy position. Next the abdomen was prepped and draped in usual sterile fashion. A time-out was performed to confirm the correct patient procedure. Next varus needle was inserted and confirmed to be intra-abdominal with the saline drop test. Pneumoperitoneum was obtained. With the main 8 mm incision followed by placement of the trocar. The camera was inserted in the abdomen was inspected. There was noted to be a well- defined tattoo seen in the mid to distal transverse colon. We then placed additional trocars in a horizontal fashion across the lower abdomen. We made a Pfannenstiel incision followed by placement of a wound protector. Patient had a significant amount of intra-abdominal fat including very thickened and fatty mesentery as well as large fatty omentum making the dissection and mobilization extremely difficult. Given the above it was decided performed and extended right colectomy has a mesentery was do fat intake and to bring the descending and transverse colon together without tension. We took the omentum off of the transverse colon from the splenic flexure to be hepatic flexure. We then mobilized the descending colon in a lateral to medial manner. We then carefully took down the splenic flexure and released the attachments from the spleen as well as inferior border of the pancreas. Once this was completely mobilized we then took the mesentery up to healthy portion of the distal transverse colon. It was then transected with a blue load stapler. With the continued mobilization of the proximal transverse colon around the hepatic flexure which was taken down. We then mobilized the right colon in a lateral to medial manner. We then tented up the ileocolic pedicle and located the duodenum which was protected throughout the entirety of the case. We then transected the ileocolic pedicle with a white load stapler. We then took the mesentery up to a healthy portion of terminal ileum. The terminal ileum was transected with a blue load stapler. We then took the remaining mesentery of the right colon and proximal transverse colon with a vessel sealer. With specimen was then extracted through the wound protector Pfannenstiel incision. Once this was done we then ensured hemostasis throughout the abdomen. With the splenic flexure imbalance and descending colon mobilized we will performed a [id number] staple anastomosis involving the terminal ileum in left colon. Systemic ICG was given intravenously to confirm adequate blood flow to be 50 terminal ileum and colon which was confirmed on firefly. We then made a venotomy and colotomy followed by placement of a stapler. A stapled anastomosis was performed and the common enterotomy was closed with a running V lock suture in two layers. We then placed Clarix bio-tissue over the common enterocolotomy to aid in healing of the anastomosis. Once this was done and omental flap was created and placed around the anastomosis. Again hemostasis was confirmed. We then placed hemostatic powder throughout the abdomen and left a drain in place. We then removed all the trocars in the 12 mm port site was closed with a Vicryl stitch. Within securely drain in place and closed the Pfannenstiel fascia with PDS sutures. We then copiously irrigated the wound with saline and Betadine solution. All skin incisions were closed with Monocryl sutures and Dermabond was placed sterile dressing. The patient tolerated the procedure well and taken to the recovery room in stable condition. I discussed the above in great detail with both the and son a completion case. They voiced complete understanding and appreciation. Specimen: Right colon and transverse colon, tattoo [place] site of unresectable polyp Complications none All counts were reported as correct x2 by nursing staff DEB GOYAL MD Sep 12, 2025 15:34 Electronically Signed by: DEB GOYAL MD09/12/25 1534 Electronically Co-Signed by: Assessment/Plan: Final diagnosis Status post robotic extended right colectomy by Dr. Goyal, 09/12/2025 History of unresectable tubulovillous midtransverse colon polyp measuring about 30 mm involving the mid transverse colon, POA History of IA with previous history of PCI, POA Hypertension, POA Hyperlipidemia, POA Prior history of GI bleeding, POA Obesity, POA Rule out obstructive sleep apnea, POA Abdominal distention due to ileus 1.6 cm hypodense lesion segment eight of the liver Diffuse coronary artery calcifications Discharge Instructions: The patient to follow up with his primary care physician as an outpatient and General surgery. Patient was advised to return to hospital if condition changes. At the time of my visit in the room, is present. Results of CT of the abdomen reviewed, discussed in detail. CT of the abdomen showing a 1.6 cm h ypodense lesion in segment eight of the liver. Diffuse coronary artery calcifications. Per finding abdominal ultrasound was requested yesterday, able to visualize the hypodense liver lesion on ultrasound, recommended contrast CT abdomen. Per my discussion with the patient and the , they would prefer to as an outpatient once he is more medically recovered from the surgical in tervention. A printed copy of the CT report has been provided so they can follow up with General surgery and primary care physician for referral for further imaging tests. In terms of the diffuse coronary artery calcifications, patient was recommended to follow up with his belt polisher as an outpatient. Both the patient and the agreed and understood the information provided. Home Medications: Reported Medications Aspirin (Aspirin) 81 Mg Tab.chew, 81 MG PO HS, TAB.CHEW 09/08/25 Rosuvastatin Calcium (Rosuvastatin Calcium) 10 Mg Tablet, 20 MG PO HS, TAB 09/08/25 Amlodipine Besylate (Amlodipine Besylate) 5 Mg Tablet, 5 MG PO HS, TAB 09/08/25 Empagliflozin (Jardiance) 10 Mg Tablet, 1 TAB PO HS for 30 Days, #30 TAB 0 Refills 08/01/25 Discontinued Reported Medications [Rosuvastatin ] No Conflict Check, 20 MG PO HS 04/11/25 Amlodipine Besylate (Amlodipine Besylate) 5 Mg Tablet, 1 TAB PO HS for 30 Days, #30 TAB 0 Refills 04/11/25 Time spent arranging discharge: 31-60 minutes GILBERT KIM MD Sep 15, 2025 14:20
--- NOTE | 2025-09-15 15:35 | NUR ---
PATIENT IS DISCHARGED. IV TAKEN OUT WITH CATHETER INTACT. JILL DRAINED REMOVED. PATIENT TOLERATED WELL. EDUCATION MATERIAL PROVIDED TO PATIENT. SPOUSE EDUCATED ON DRESSING CHANGES. PATIENT TAKEN DOWN BY KEYBOARD INSTRUMENT REPAIRER.
== END 2025-09-15 16:00 | disposition home or self-care (01) | DRG 329 ==
LOC: DAHIP 09-12 06:58 → 4AH 09-12 16:30
PROVIDERS: ADMIT Internal Medicine; ATTEND Internal Medicine
PROC: 4A1BXSH Monitoring of Gastrointestinal Vascular Perfusion using Indocyanine Green Dye, External Approach (ICD-10-PCS; 2025-09-12)
PROC: 8E0W4CZ Robotic Assisted Procedure of Trunk Region, Percutaneous Endoscopic Approach (ICD-10-PCS; 2025-09-12)
PROC: 0DTF4ZZ Resection of Right Large Intestine, Percutaneous Endoscopic Approach (ICD-10-PCS; principal; 2025-09-12 09:00)
DX: K63.5 Polyp of colon (principal); R65.11 Systemic inflammatory response syndrome (SIRS) of non-infectious origin with acute organ dysfunction; K56.7 Ileus, unspecified; E66.9 Obesity, unspecified; I10 Essential (primary) hypertension; K76.0 Fatty (change of) liver, not elsewhere classified; N40.0 Benign prostatic hyperplasia without lower urinary tract symptoms; E78.5 Hyperlipidemia, unspecified; I25.10 Atherosclerotic heart disease of native coronary artery without angina pectoris; K57.30 Diverticulosis of large intestine without perforation or abscess without bleeding; Z87.891 Personal history of nicotine dependence; Z95.5 Presence of coronary angioplasty implant and graft; I25.2 Old myocardial infarction; Z68.28 Body mass index [BMI] 28.0-28.9, adult
CPT/HCPCS: 36415; 74018; 74176; 76705; 80048; 80053; 82948; 83735; 85025; 85027; 85610; 85730; 86850; 86900; 86901; 93005; A4344; G0378; J0696; J1100; J1171; J1335; J1650; J1815; J2003; J2250; J2405; J2543; J2704; J2765; J3010; J3480; J3490; J7030; J7120; J8540; P9045; A4213; A4215; A4216; A4221; A4222; A4223; A4600; A4649; A4663; A4930; A6260; C9250; J0665; Q4148